=== PATIENT | female | born 1935 | race Two or more races ===

== ENCOUNTER 2021-03-19 23:55 | Inpatient (IN) | payer MEDICARE, OTHER ==
[~2021-03-19] VITALS: Ht 157.5 cm; Wt 70.8 kg
--- NOTE | 2021-03-20 00:17 | NUR ---
PT WAS BIBRA FROM HOME FOR EVALUATION OF POSTERIOR HEAD LACERATION S/P TRIP AND FALL NEXT TO HER SOFA. - KO REPORTED. PT REPORTED CHRONIC MID BACK PAIN WHICH WAS AGGRAVATED BY FALL. TDAP NOT UPDATED. PT WAS ASSISTED TO BED 10, WAS PLACED ON A MONITOR . VSS. WILL CONT TO MONITOR,
--- NOTE | 2021-03-20 00:38 | NUR ---
BROUGHT TO CT
--- NOTE | 2021-03-20 01:10 | NUR ---
DR MAYFIELD AT BED SIDE W/ SUPERVISOR WATER SOFTENER SERVICE
[2021-03-20] MEDS ORDERED: HYDROMORPHONE 1 MG/1 ML DISP.SYRIN ONE (01:28)
[2021-03-20] MEDS ORDERED: ONDANSETRON 4 MG TAB.RAPDIS ONE (01:29)
[2021-03-20] MEDS ORDERED: LIDOCAINE 1%-EPI 1:100,000 20 ML VIAL ONE (01:30)
[2021-03-20] MEDS ORDERED: SODIUM BICARBONATE 5 ML VIAL ONE (01:30)
[2021-03-20] MEDS ORDERED: HYDROMORPHONE 1 MG/1 ML DISP.SYRIN IM ONE (01:30)
[2021-03-20] MEDS ORDERED: ONDANSETRON 4 MG TAB.RAPDIS SL ONE (01:30)
[2021-03-20] MEDS ORDERED: LIDOCAINE 1%-EPI 1:100,000 20 ML VIAL TP ONE (02:00)
[2021-03-20] MEDS ORDERED: SODIUM BICARBONATE 5 ML VIAL MC ONE (02:00)
[2021-03-20] MEDS ORDERED: IV NS 0.9% 500 ML BAG IV ONE (02:00)
[2021-03-20 02:05] LABS: BASOPHILS % (AUTO) 0.4 % (0.0-2.0); EOSINOPHILS % (AUTO) 2.6 % (0.0-6.0); HEMATOCRIT 38 % (33-45); HEMOGLOBIN 12.8 g/dL (11.5-14.8); LYMPHOCYTES # (AUTO) 1.5 /CMM (0.8-4.8); MEAN CORPUSCULAR HGB CONC 34 g/dl (31.0-36.0); MEAN CORPUSCULAR VOLUME 98 fL (82-100); MONOCYTES # (AUTO) 0.5 /CMM (0.1-1.30); MONOCYTES % (AUTO) 5.5 % (2.0-12.0); NEUTROPHILS # (AUTO) 6.7 /CMM (1.8-8.9); NEUTROPHILS % (AUTO) 74.5 % (43.0-81.0); PLATELET COUNT (AUTO) 172 /CMM (150-450); RED BLOOD CELL COUNT(AUTO) 3.88 MIL/uL (4.0-5.2)
[2021-03-20 02:27] LABS: CALCIUM, SERUM 9.8 mg/dL (8.5-10.1); CREATININE 1.3 mg/dL (0.6-1.3); POTASSIUM 3.7 mmol/L (3.5-5.1)
[2021-03-20] MEDS ORDERED: ACETAMINOPHEN 325 MG TABLET PO PRN (02:30)
[2021-03-20] MEDS ORDERED: MAG HYDROX/AL HYDROX/SIMETH 30 ML UDC PO PRN (02:30)
[2021-03-20] MEDS ORDERED: ONDANSETRON HCL/PF 4 MG/2 ML VIAL IVP PRN (02:30)
[2021-03-20] MEDS ORDERED: MORPHINE SULFATE INJ 2 MG/ML DISP.SYRIN IV PRN (02:30)
[2021-03-20] MEDS ORDERED: Z GUARD REMEDY 2 OZ OINT TP PRN (02:30)
[2021-03-20] MEDS ORDERED: HYDROCODONE/APAP 5/325MG TABLET PO PRN (02:30)
[2021-03-20] MEDS ORDERED: TEMAZEPAM 15 MG CAPSULE PO PRN (02:30)
[2021-03-20] MEDS ORDERED: MAGNESIUM HYDROXIDE 30 ML UDC PO PRN (02:30)
[2021-03-20 02:33] LABS: ALBUMIN 3.9 g/dL (3.4-5.0); BILIRUBIN,DIRECT 0.1 mg/dL (0.0-0.2); BILIRUBIN,TOTAL 0.5 mg/dL (0.2-1.0); TOTAL PROTEIN, SERUM 7.7 g/dL (6.4-8.2)
[2021-03-20 04:35] VITALS: BP 154/76
--- NOTE | 2021-03-20 04:35 | NUR ---
REPORT GIVEN TO RN, PT TRANSFERED.
--- NOTE | 2021-03-20 04:35 | NUR ---
MS LIFE EDUCATOR NOTE RECEIVED PATIENT, ALERT/ORIENTED X 4, PRIMARY LANGUAGE CROATIAN BUT SPEAKS SOME TAMAZIGHT. PATIENT STABLE ON ROOM AIR, NO S/S OF DISTRESS OR SHORTNESS OF BREATH NOTED. PATIENT HAS LACERATION ON BACK OF THE HEAD WITH STITCHES, BRUISE ON BACK, AND OLD BUTTOCK WOUND, PHOTOS TAKEN AND CHARTED. LEFT AC #20G INTACT AND PATENT, SALINE LOCKED. PATIENT REPORTS BACK PAIN WHEN CHANGING POSITIONS. ORIENTED PATIENT TO THE ROOM AND HOW TO USE THE CALL LIGHT. WILL CONTINUE TO MONITOR. WILL CONTINUE PLAN OF CARE
[2021-03-20] MEDS: IV NS 0.9% 1,000 ML IV PRN ×2 (06:57→21:19)
--- NOTE | 2021-03-20 07:15 | NUR ---
MS RN CLOSING NOTES PATIENT SLEEPING IN BED, EASILY AWAKENED. NO COMPLAINTS OF PAIN AT THIS TIME. PATIENT STABLE ON ROOM AIR, NO S/S OF DISTRESS OR SHORTNESS OF BREATH NOTED. L AC #20G RUNNING NS @ 75 ML/HR. DVT PUMPS ON PATIENT. MEDICATIONS GIVEN ORDERED. PATIENT NEEDS MET THROUGHOUT SHIFT. SAFETY MEASURES IN PLACE, CALL LIGHT WITHIN REACH, BED LOCKED IN LOWEST POSITION AND BED ALARM ON. WILL ENDORSE TO DAY SHIFT NURSE FOR CONTINUITY OF CARE
--- NOTE | 2021-03-20 07:55 | NUR ---
MS RN OPENING NOTE PATIENT IS IN BED RESTING, PATIENT IS IN NO ACUTE DISTRESS. PATIENT IS ON ROOM AIR TOLERATING WELL. PATIENT IS UNABLE TO GET UP DUE TO A GROUND LEVEL FALL AT HOME. SAFETY PRECAUTIONS ARE ON. BED IS LOCKED IN THE LOWEST POSITION, WITH SIDE RAILS UP, CALL LIGHT WITHIN REACH, WILL CONTINUE TO MONITOR CLOSELY THROUGHOUT THE SHIFT.
[2021-03-20 08:51] VITALS: BP 152/73
[2021-03-20] MEDS: PANTOPRAZOLE 40 MG TABLET.DR PO SCH (09:34)
[2021-03-20] MEDS ORDERED: TELM80TA9 PO (11:17)
[2021-03-20] MEDS ORDERED: ICOS1CAP PO (11:17)
[2021-03-20] MEDS ORDERED: METO-357 PO (11:17)
[2021-03-20] MEDS ORDERED: FLUT1DIS3 INH (11:17)
[2021-03-20] MEDS ORDERED: SERT-438 PO (11:17)
[2021-03-20] MEDS ORDERED: CLON0.5T4 PO (11:17)
[2021-03-20] MEDS ORDERED: LIPA1CAP15 PO (11:17)
[2021-03-20] MEDS ORDERED: DICL100G34 TP (11:17)
[2021-03-20] MEDS ORDERED: FENO48TA6 PO (11:17)
[2021-03-20] MEDS ORDERED: TRAM50TA2 PO (11:17)
[2021-03-20] MEDS ORDERED: EMPA1TAB21 PO (11:17)
[2021-03-20] MEDS ORDERED: CARV25TA2 PO (11:17)
[2021-03-20] MEDS ORDERED: INSU100I4 SQ (11:17)
[2021-03-20] MEDS ORDERED: QUET25TA PO (11:17)
[2021-03-20] MEDS ORDERED: CLOP75TA15 PO (11:17)
[2021-03-20] MEDS ORDERED: CHOL200010 PO (11:17)
[2021-03-20] MEDS ORDERED: LEVO100T PO (11:17)
[2021-03-20] MEDS ORDERED: DICLOFENAC TOPICAL 100 GM GEL..GM. TP PRN (12:30)
[2021-03-20] MEDS ORDERED: clonazePAM 0.5 MG TABLET PO PRN (12:30)
[2021-03-20] MEDS: CARVEDILOL 12.5 MG TABLET PO SCH ×2 (12:30→17:25)
[2021-03-20] MEDS ORDERED: AMYLASE/LIPASE/PROTEASE 1 CAP CAPSULE.DR PO SCH (13:00)
[2021-03-20] MEDS: LIPASE/PROTEASE/AMYLASE 1 EACH CAPSULE.DR PO SCH ×2 (13:03→17:25)
--- NOTE | 2021-03-20 14:40 | NUR ---
MS RN NOTE DR. HAROON HOLLOWAY ORDERED ORTHOPEDIC LORCET BRACE FOR LUMBER SPINE. CALLED THREE SUPPLIES COMPANIES, THEY ARE ALL CLOSED DUE TO HOLIDAY. SUPPLIES DO NOT HAVE IT. WILL NOTIFY
--- NOTE | 2021-03-20 16:08 | NUR ---
MS RN NOTE FAXED OVER ORDER FOR LUMBAR ORTHOPEDIC CORSET TO [facility], NOTIFIED US IT WILL BE AVAILABLE TOMORROW. IS AWARE.
[2021-03-20 16:16] VITALS: BP 130/65
[2021-03-20] MEDS ORDERED: FLUTICASONE/SALMETEROL 1 DISK IH SCH (17:00)
--- NOTE | 2021-03-20 18:52 | NUR ---
MS RN CLOSING NOTE PATIENT IS IN BED RESTING, PATIENT IS IN NO ACUTE DISTRESS. PATIENT IS ON ROOM AIR TOLERATING WELL. PATIENT IS UNABLE TO GET UP DUE TO A GROUND LEVEL FALL AT HOME. SAFETY PRECAUTIONS ARE ON. BED IS LOCKED IN THE LOWEST POSITION, WITH SIDE RAILS UP, CALL LIGHT WITHIN REACH, ENDORSE PATIENT TO IN HOME BABY SITTER NURSE FOR JL.
--- NOTE | 2021-03-20 19:40 | NUR ---
MSRN FULLY AWAKE, BRUNEIAN SPEAKING WITH LIMITED SAMOAN. ABLE TO UNDERSTAND BASIC SAMOAN. VERBALIZES STOMACH PAIN, STATED WANTED TO USE BSC. REMINDED CBR SEC TO BACK PROBLEM. CORSET BRACE TO BE DELIVERED TOMORROW INSTEAD. FRACTURED HOOD PROVIDED. TO CONTINUE.
[2021-03-20 20:00] VITALS: BP 138/80
--- NOTE | 2021-03-20 20:00 | NUR ---
MSRN NOT ABLE TO DEFECATE, INCREASING ABDOMINAL PAIN. INSISTED TO USE COMMODE, ASSISTED MOD TO MAX ASSIST 2 PERSON GOING TO BSC. ATTENDING UROLOGIST STAYED WITH PATIENT, HFR. ABLE TO DEFECATE LARGE STOOLS. RELIEF FROM STOMACH ACHE PATIENT VERBALIZES. HS CARE STARTED. ASSISTED BACK TO BED REPOSITIONED FOR COMFORT. IVF CONTINUED. FELT BETTER THIS TIME.
[2021-03-21 05:57] LABS: BASOPHILS % (AUTO) 0.4 % (0.0-2.0); EOSINOPHILS % (AUTO) 2.9 % (0.0-6.0); HEMATOCRIT 32 % (33-45); HEMOGLOBIN 10.7 g/dL (11.5-14.8); LYMPHOCYTES # (AUTO) 1.2 /CMM (0.8-4.8); LYMPHOCYTES % (AUTO) 16.5 % (20.0-44.0); MEAN CORPUSCULAR HGB CONC 34 g/dl (31.0-36.0); MEAN CORPUSCULAR VOLUME 99 fL (82-100); MONOCYTES # (AUTO) 0.5 /CMM (0.1-1.30); MONOCYTES % (AUTO) 7.5 % (2.0-12.0); NEUTROPHILS # (AUTO) 5.3 /CMM (1.8-8.9); NEUTROPHILS % (AUTO) 72.7 % (43.0-81.0); PLATELET COUNT (AUTO) 146 /CMM (150-450); RED BLOOD CELL COUNT(AUTO) 3.22 MIL/uL (4.0-5.2); WHITE BLOOD COUNT (AUTO) 7.3 K/uL (4.3-11.0)
[2021-03-21 06:02] LABS: CALCIUM, SERUM 8.6 mg/dL (8.5-10.1); CREATININE 1.1 mg/dL (0.6-1.3); MAGNESIUM 1.3 mg/dL (1.8-2.4); PHOSPHORUS 3.5 mg/dL (2.5-4.9); POTASSIUM 3.9 mmol/L (3.5-5.1)
--- NOTE | 2021-03-21 06:57 | NUR ---
MSRN BACK PAIN WHEN REPOSITIONING. ADVISED LOG ROLLING, STILL PREFERS USING BSC, EXPLAINED RISK, UNABLE TO VOID IN BEDPAN. MODERATE ASSIST ON TRANSFERS, AWAITING FOR CORCET BRACE.
--- NOTE | 2021-03-21 07:30 | NUR ---
MS RN OPENING NOTE PATIENT IS IN BED AWAKE, A&0 X 3-4, NO ACUTE DISTRESS NOTED. PATIENT IS ON ROOM AIR TOLERATING WELL. PATIENT HAS COMPLAINTS OF INTERMITTENT BACK PAIN, PAIN MEDICATION OFFERED, PATIENT REFUSED. WITH IV OF NS AT 75 CC/HR INFUSING WELL ON LEFT AC G#20, PATENT AND INFUSING WELL. NO INFILTRATION NOTED. SAFETY PRECAUTIONS OBSERVED AND MAINTAINED: BED IS LOCKED IN THE LOWEST POSITION, WITH SIDE RAILS UP, CALL LIGHT WITHIN REACH, WILL CONTINUE TO MONITOR CURRENT STATUS.
[2021-03-21 08:00] VITALS: BP 139/66
[2021-03-21] MEDS: Fenofibrate 48 MG TABLET PO SCH (08:43)
[2021-03-21] MEDS: LIPASE/PROTEASE/AMYLASE 1 EACH CAPSULE.DR PO SCH ×3 (08:43→17:13)
[2021-03-21] MEDS: PANTOPRAZOLE 40 MG TABLET.DR PO SCH (08:44)
[2021-03-21] MEDS: CLOPIDOGREL BISULFATE 75 MG TABLET PO SCH (08:44)
[2021-03-21] MEDS: LEVOTHYROXINE SODIUM 100 MCG TABLET PO SCH (08:44)
[2021-03-21] MEDS: CARVEDILOL 12.5 MG TABLET PO SCH ×2 (08:45→16:48)
[2021-03-21] MEDS: QUETIAPINE FUMARATE 25 MG TABLET PO SCH (08:45)
[2021-03-21] MEDS: FLUTICASONE/VILANTEROL 1 EACH BLST.W.DEV IH SCH (08:54)
[2021-03-21] MEDS: SERTRALINE HCL 50 MG TABLET PO SCH (08:56)
--- NOTE | 2021-03-21 09:00 | NUR ---
RN NOTES PATIENT IV NOTED WITH REDNESS. CHECKED FOR PATENCY, NO BACKFLOW NOTED. REMOVED IV ON L AC AND INSERTED A NEW LINE ON PATIENT'S R FOREARM USING IV CATHETER G#20. IV SITE PATENT AND INFUSING WELL.
[2021-03-21] MEDS: Magnesium 1GM/D5W 100ML PREMIX 100 ML IV SCH ×4 (09:40→13:19)
[2021-03-21 10:56] LABS: CREATININE, URINE 71.7 MG/DL (30.0-125.0); URINE TOTAL PROTEIN 17.7 mg/dL (0-11.9)
--- NOTE | 2021-03-21 10:56 | NUR ---
WOUND CARE CONSULT: PT PRESENTS WITH SCARRING TO LOWER BUTTOCKS WITH SCRATCH FINNEY, MIDBACK SKIN DISCOLORATION AND CLOSED LACERATION TO SCALP, ALL PRESENT ON ADMISSION. RECOMMENDATIONS MADE FOR SKIN PROTECTION. DISCUSSED WITH NURSING STAFF. MD IN AGREEMENT WITH PLAN OF CARE.
[2021-03-21 11:23] LABS: BILIRUBIN,URINE NEGATIVE (NEGATIVE); COLOR,URINE YELLOW (YELLOW); LEUKOCYTE ESTERASE ,URINE NEGATIVE (NEGATIVE); NITRITE, URINE NEGATIVE (NEGATIVE); PROTEIN,URINE NEGATIVE (NEGATIVE); UGLUCOSE NEGATIVE (NEGATIVE); UROBILINOGEN,URINE 0.2 EU/dL (0.2)
[2021-03-21 12:47] LABS: EOSINOPHIL,URINE None Seen
[2021-03-21 16:01] VITALS: BP 123/44
[2021-03-21] MEDS: IV NS 0.9% 1,000 ML IV PRN (16:37)
--- NOTE | 2021-03-21 18:43 | NUR ---
MS RN CLOSING NOTES PATIENT IN BED, AWAKE, A&O X4. NOT IN ANY FORM OF ACUTE DISTRESS NOTED. WITH IVF OF NS @75CC/HR INFUSING WELL ON PATIENT'S RIGHT FOREARM. NO REDNESS, NO S/SX OF INFILTRATION NOTED. WITH COMPLAINTS OF INTERMITTENT BACK PAIN, REFUSED PAIN MEDICATION. SAFETY PRECAUTIONS OBSERVED AND MAINTAINED DURING THE SHIFT: BED ON LOWEST LOCKED POSITION. SIDE RAILS UP X 2. KEPT CALL LIGHT WITHIN EASY REACH. DUE MEDS GIVEN ORDERED. ENDORSED TO OPENING MACHINE CLEANER NURSE FOR CONTINUITY OF CARE.
--- NOTE | 2021-03-21 19:45 | NUR ---
MSRN FULLY AWAKE, NO NEEDS MADE. HFR. SAFETY PRECAUTIONS EMPHASIZED APPEARS TO UNDERSTAND, BED ALARM ON. CLOSELY WATCHED
[2021-03-21 20:00] VITALS: BP 129/65
--- NOTE | 2021-03-21 20:45 | NUR ---
MSRN ASSISTED TO BSC, 2 PERSON ASSIST. HAD BM. ADVISED NEED TO WEAR CORSET BRACE MATHEW WHEN GETTING OOB, REFUSED.
--- NOTE | 2021-03-21 21:20 | NUR ---
MSRN PATIENT IN SEVERE PAIN ESPECIALLY RIB PAIN AND BACK. OFFERED PAIN MED AGREED THIS TIME. MORPHINE IVP ADMINISTERED. POSITIONED FOR COMFORT. CLOSELY WATCHED.
--- NOTE | 2021-03-22 01:10 | NUR ---
DEVIN SLEPT WELL. PROVIDED QUIET ENVIRONMENT. CLOSELY WATCHED.
[2021-03-22 06:05] LABS: BASOPHILS % (AUTO) 0.4 % (0.0-2.0); EOSINOPHILS % (AUTO) 3.7 % (0.0-6.0); HEMATOCRIT 32 % (33-45); HEMOGLOBIN 10.7 g/dL (11.5-14.8); LYMPHOCYTES # (AUTO) 1.6 /CMM (0.8-4.8); LYMPHOCYTES % (AUTO) 26.8 % (20.0-44.0); MEAN CORPUSCULAR HGB CONC 34 g/dl (31.0-36.0); MEAN CORPUSCULAR VOLUME 98 fL (82-100); MONOCYTES # (AUTO) 0.5 /CMM (0.1-1.30); MONOCYTES % (AUTO) 8.5 % (2.0-12.0); NEUTROPHILS # (AUTO) 3.7 /CMM (1.8-8.9); NEUTROPHILS % (AUTO) 60.6 % (43.0-81.0); PLATELET COUNT (AUTO) 151 /CMM (150-450); WHITE BLOOD COUNT (AUTO) 6.1 K/uL (4.3-11.0)
[2021-03-22 06:24] LABS: ALBUMIN 2.9 g/dL (3.4-5.0); BILIRUBIN,TOTAL 0.3 mg/dL (0.2-1.0); CALCIUM, SERUM 8.6 mg/dL (8.5-10.1); MAGNESIUM 1.8 mg/dL (1.8-2.4); PHOSPHORUS 3.3 mg/dL (2.5-4.9); POTASSIUM 3.8 mmol/L (3.5-5.1); TOTAL PROTEIN, SERUM 6.1 g/dL (6.4-8.2)
--- NOTE | 2021-03-22 06:40 | NUR ---
MSRN FULLY AWAKE, PAIN TOLERABLE, IVF CONTINUED.
--- NOTE | 2021-03-22 07:20 | NUR ---
ms rn received on bed, awake,alert,oriented x4,not in any form of distress, respirations even and unlabored,no sob noted, lungs are clear,abdomen soft,positive bowel sounds,denies pain at this time, will monitor patient's condition.
[2021-03-22 08:00] VITALS: BP 142/69
[2021-03-22] MEDS: PANTOPRAZOLE 40 MG TABLET.DR PO SCH (08:25)
[2021-03-22] MEDS: CLOPIDOGREL BISULFATE 75 MG TABLET PO SCH (08:25)
[2021-03-22] MEDS: SERTRALINE HCL 50 MG TABLET PO SCH (08:26)
[2021-03-22] MEDS: QUETIAPINE FUMARATE 25 MG TABLET PO SCH (08:26)
[2021-03-22] MEDS: LEVOTHYROXINE SODIUM 100 MCG TABLET PO SCH (08:26)
[2021-03-22] MEDS: LIPASE/PROTEASE/AMYLASE 1 EACH CAPSULE.DR PO SCH ×3 (08:26→17:54)
[2021-03-22] MEDS: CARVEDILOL 12.5 MG TABLET PO SCH ×2 (08:27→17:55)
[2021-03-22] MEDS: Fenofibrate 48 MG TABLET PO SCH (08:59)
[2021-03-22] MEDS: FLUTICASONE/VILANTEROL 1 EACH BLST.W.DEV IH SCH (08:59)
--- NOTE | 2021-03-22 09:05 | NUR ---
ms martinez breakfast served,due meds given,tolerated well.
[2021-03-22 16:00] VITALS: BP 140/60
--- NOTE | 2021-03-22 19:30 | NUR ---
RN OPENING NOTE PATIENT IN BED EYES CLOSED, PATIENT IS EASILY AROUSED. PATIENT IS AUSTRALIAN SPEAKING BUT CAN UNDERSTAND WELSH. A/O X 4. PATIENT'S OBDULIO ON THE POSTERIOR SCALP INTACT, CLEAN, AND DRY. PATIENT'S IV ACCESS PATENT AND INTACT. SAFETY MEASURES IN PLACE: BED IN LOCKED AND LOWEST POSITION, CALL LIGHT WITHIN REACH, SIDE RAILS UP. ENCOURAGED PATIENT TO CALL WHEN IN NEED. WILL MONITOR PATIENT CLOSELY.
[2021-03-22 20:00] VITALS: BP 159/75
--- NOTE | 2021-03-22 21:08 | NUR ---
NOTIFIED SOLOMON CATES REGARDING PATIENT NOT BEING DISCHARGED TODAY D/T CASE MANAGEMENT NOT ABLE TO ARRANGE ARU TRANSFER. CONFIRMED. WILL BE D/C TOMORROW.
[2021-03-23 06:06] LABS: PTH, INTACT 17 pg/mL (15-65)
--- NOTE | 2021-03-23 06:56 | NUR ---
RN CLOSING NOTE PATIENT IN BED EYES CLOSED, PATIENT IS EASILY AROUSED. ASSESSED PAIN AND OFFERED PAIN MEDICATION THROUGHOUT THE SHIFT, PATIENT REFUSING PAIN MEDICINE. PATIENT'S OBDULIO ON OCCIPITAL LACERATION STILL INTACT, CLEAN, AND DRY. PATIENT'S IV ACCESS REMAINED PATENT AND INTACT. SAFETY MEASURES MAINTAINED: BED IN LOCKED AND LOWEST POSITION, CALL LIGHT WITHIN REACH, SIDE RAILS UP, AND BED ALARM ON. ALL NEEDS MET AND ATTENDED, ALL ORDERS CARRIED OUT. WILL ENDORSE TO DAY SHIFT NURSE FOR JL
--- NOTE | 2021-03-23 07:44 | NUR ---
RN OPENING NOTE PATIENT IN BED EYES CLOSED, PATIENT IS EASILY AROUSED. PATIENT IS NORTHERN IRISH SPEAKING BUT CAN UNDERSTAND BULGARIAN. A/O X 4. PATIENT IS BREATHING EVENLY AND NONLABORED STABLE ON ROOM AIR. PATIENT'S OBDULIO ON THE POSTERIOR SCALP INTACT, CLEAN, AND DRY. PATIENT'S IV ACCESS ON RIGHT FA #20 GAUGE PATENT AND INTACT. SAFETY MEASURES IN PLACE: BED IN LOCKED AND LOWEST POSITION, CALL LIGHT WITHIN REACH, SIDE RAILS UP. ENCOURAGED PATIENT TO CALL WHEN IN NEED. WILL CONTINUE TO MONITOR PATIENT
[2021-03-23 08:00] VITALS: BP 163/75
[2021-03-23 08:07] LABS: *SPE A/G RATIO 0.9 (0.7-1.7); *SPE ALBUMIN 2.7 g/dL (2.9-4.4); *SPE ALPHA-1-GLOBULIN 0.3 g/dL (0.0-0.4); *SPE ALPHA-2-GLOBULIN 0.9 g/dL (0.4-1.0); *SPE BETA GLOBULIN 0.9 g/dL (0.7-1.3); *SPE M-SPIKE Not Observed g/dL (Not Observed)
[2021-03-23] MEDS: PANTOPRAZOLE 40 MG TABLET.DR PO SCH (08:13)
[2021-03-23] MEDS: LEVOTHYROXINE SODIUM 100 MCG TABLET PO SCH (08:13)
[2021-03-23] MEDS: LIPASE/PROTEASE/AMYLASE 1 EACH CAPSULE.DR PO SCH (08:19)
[2021-03-23 08:20] VITALS: BP 137/90
[2021-03-23] MEDS: QUETIAPINE FUMARATE 25 MG TABLET PO SCH (08:20)
[2021-03-23] MEDS: SERTRALINE HCL 50 MG TABLET PO SCH (08:20)
[2021-03-23] MEDS: CLOPIDOGREL BISULFATE 75 MG TABLET PO SCH (08:20)
[2021-03-23] MEDS: CARVEDILOL 12.5 MG TABLET PO SCH (08:20)
[2021-03-23] MEDS: Fenofibrate 48 MG TABLET PO SCH (08:22)
[2021-03-23] MEDS: FLUTICASONE/VILANTEROL 1 EACH BLST.W.DEV IH SCH (08:23)
--- NOTE | 2021-03-23 11:46 | NUR ---
DESKTOP SUPPORT MANAGER NOTE RECEIVED ORDER FOR DISCHARGE. PATIENT IS NIGERIAN SPEAKING BUT CAN UNDERSTAND MACEDONIAN. A/O X 4. PATIENT IS BREATHING EVENLY AND NONLABORED STABLE ON ROOM AIR. PATIENT'S OBDULIO ON THE POSTERIOR SCALP INTACT, CLEAN, AND DRY. PATIENT'S IV ACCESS AND ID WERE REMOVED. DISCHARGE INSTRUCTIONS WERE GIVEN BOTH VERBALLY AND WRITTEN. REPORT GIVEN TO [facility] TO RN PLATE MOLDER. PATIENT LEFT IN STABLE CONDITION VIA AMBULANCE 3 DENTAL CLAIMS PROCESSOR PRESENT.
== END 2021-03-23 11:46 | DRG 542 ==
LOC: ER 23:58 → MED 03-20 04:16
PROVIDERS: ADMIT Nurse Practitioner Acute Care; ATTEND Hospitalist
DX: M48.55XA Collapsed vertebra, not elsewhere classified, thoracolumbar region, initial encounter for fracture (principal); N17.0 Acute kidney failure with tubular necrosis; J84.9 Interstitial pulmonary disease, unspecified; W18.30XA Fall on same level, unspecified, initial encounter; S01.01XA Laceration without foreign body of scalp, initial encounter; I10 Essential (primary) hypertension; Z20.822 Contact with and (suspected) exposure to COVID-19; Y92.009 Unspecified place in unspecified non-institutional (private) residence as the place of occurrence of the external cause; E11.9 Type 2 diabetes mellitus without complications; E03.9 Hypothyroidism, unspecified; E66.9 Obesity, unspecified; Z68.28 Body mass index [BMI] 28.0-28.9, adult; I70.0 Atherosclerosis of aorta; E83.42 Hypomagnesemia; M47.815 Spondylosis without myelopathy or radiculopathy, thoracolumbar region; M48.02 Spinal stenosis, cervical region; Z98.890 Other specified postprocedural states; R29.6 Repeated falls; M85.88 Other specified disorders of bone density and structure, other site; R26.9 Unspecified abnormalities of gait and mobility; Z90.5 Acquired absence of kidney; N13.9 Obstructive and reflux uropathy, unspecified; Z88.0 Allergy status to penicillin; Z79.4 Long term (current) use of insulin; Z79.02 Long term (current) use of antithrombotics/antiplatelets; Z79.899 Other long term (current) drug therapy
CPT/HCPCS: 36415; 70450-TC; 71045-TC; 72125-TC; 72128-TC; 72131-TC; 80048-TC; 80053-TC; 80061-TC; 80076-TC; 82550-TC; 82570-TC; 83735-TC; 83970; 84100-TC; 84155; 84155-TC; 84165; 84300-TC; 85025-TC; 85730-TC; 87081-TC; 92521; 92526; 97112-TC; 97530-TC; C9803; G0378; J1170; J2270; J3475; J3490; J7030; J7040; Q0162

== ENCOUNTER 2021-04-14 06:31 | Inpatient (IN) | payer MEDICARE, OTHER ==
[~2021-04-14] VITALS: Ht 157.5 cm; Wt 67.6 kg
[~2021-04-14 06:31] MED LIST: CARV25TA2 PO; CHOL200010 PO; CLON0.5T4 PO; CLOP75TA15 PO; DICL100G34 TP; EMPA1TAB21 PO; FENO48TA6 PO; FLUT1DIS3 INH; ICOS1CAP PO; INSU100I4 SQ; LEVO100T PO; LIPA1CAP15 PO; METO-357 PO; QUET25TA PO; SERT-438 PO; TELM80TA9 PO; TRAM50TA2 PO
--- NOTE | 2021-04-14 06:35 | NUR ---
pt bibra c/o left hip pain s/p trip and fall in bathroom. Pt aaox4 breathing evenly and unlabored. No shortening or rotation noted. pt attached to monitor and pox. MD at bedside. Pt given blanket and call light within reach
--- NOTE | 2021-04-14 06:40 | NUR ---
lab at bedside
--- NOTE | 2021-04-14 07:05 | NUR ---
gave report to juan Alexis for gagan
[2021-04-14 07:12] LABS: BASOPHILS # (AUTO) 0.1 K/uL (0.0-0.2); BASOPHILS % (AUTO) 0.6 % (0.0-2.0); EOSINOPHILS % (AUTO) 4.6 % (0.0-6.0); HEMATOCRIT 36 % (33-45); HEMOGLOBIN 12.1 g/dL (11.5-14.8); LYMPHOCYTES # (AUTO) 1.8 K/uL (0.8-4.8); LYMPHOCYTES % (AUTO) 19.5 % (20.0-44.0); MEAN CORPUSCULAR HGB CONC 33 g/dl (31.0-36.0); MEAN CORPUSCULAR VOLUME 97 fL (82-100); MONOCYTES # (AUTO) 0.6 K/uL (0.1-1.30); NEUTROPHILS # (AUTO) 6.4 K/uL (1.8-8.9); NEUTROPHILS % (AUTO) 69.3 % (43.0-81.0); PLATELET COUNT (AUTO) 179 K/uL (150-450); RED BLOOD CELL COUNT(AUTO) 3.72 MIL/uL (4.0-5.2); WHITE BLOOD COUNT (AUTO) 9.2 K/uL (4.3-11.0)
[2021-04-14 07:25] LABS: CARBON DIOXIDE 19 mmol/L (21-32); CHLORIDE 110 mmol/L (98-107); CREATININE 1.4 mg/dL (0.6-1.3); GLUCOSE 121 mg/dL (74-106); POTASSIUM 4.1 mmol/L (3.5-5.1); SODIUM SERUM 141 mmol/L (136-145); UREA NITROGEN, BLOOD 28 mg/dL (7-18)
[2021-04-14] MEDS ORDERED: ACETAMINOPHEN 325 MG TABLET PO ONE (07:30)
[2021-04-14] MEDS ORDERED: ACETAMINOPHEN 325 MG TABLET ONE (07:32)
--- NOTE | 2021-04-14 08:16 | NUR ---
walked patient and unable to ambulate, informed MD and notified.
--- NOTE | 2021-04-14 08:21 | NUR ---
MOVE SHEET SUBMITTED AND CALLED FOR BED.
--- NOTE | 2021-04-14 08:26 | NUR ---
covid 19 swab collected and sent to lab.
--- NOTE | 2021-04-14 08:39 | NUR ---
GOT BED [id number] DAVIAN MCKINLEY
--- NOTE | 2021-04-14 08:44 | NUR ---
wheeled patient to ct via gurney accompanied by [employer] [place].
--- NOTE | 2021-04-14 08:45 | NUR ---
report given to Yovani MARCELO for gagan.
--- NOTE | 2021-04-14 09:48 | NUR ---
wheeled patient via gurney accompanied by RN and emt in no distress, RN assigned at bedside to assume care.
--- NOTE | 2021-04-14 10:00 | NUR ---
MS DECORATING MACHINE OPERATOR NOTE PATIENT ADMITTED FROM ER ACCOMPANIED BY NURSE ON A GURNEY. PATIENT TRANSFERRED TO BED AND COMFORT MEASURES PROVIDED. PATIENT IS ALERT AND ORIENTED X4 MOSTLY RUSSIANS SPEAKING. PATIENT COMPLAINED OF PAIN ON HIPS, LEFT MORE THAN RIGHT DURING TRANSFERS OR WHEN AMBULATING. PATIENT APPARENTLY HAD A FALL AND HAD SEVERAL FALLS FOR THE PAST 3 MONTHS. PATIENT WITH NO SIGNS OF DISTRESS AND IS ON ROOM AIR SATURATING AT 98%. 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 COMFORT MEASURES PROVIDED. NEEDS ATTENDED. CALL LIGHT AND BEDSIDE TABLE WITHIN REACH AT ALL TIMES. BED LOCKED AN AT LOWEST POSITION. WITH SIDERAILS UP FOR SAFETY. WILL CONTINUE TO MONITOR PATIENT.
[2021-04-14] MEDS ORDERED: DICLOFENAC TOPICAL 100 GM GEL..GM. TP PRN (11:00)
[2021-04-14] MEDS ORDERED: clonazePAM 0.5 MG TABLET PO PRN (11:00)
[2021-04-14] MEDS ORDERED: DEXTROSE 50%-WATER 50 ML DISP.SYRIN IV PRN (11:00)
[2021-04-14] MEDS ORDERED: TRAMADOL HCL 50 MG TABLET PO PRN (11:00)
[2021-04-14] MEDS ORDERED: MAGNESIUM HYDROXIDE 30 ML UDC PO PRN (11:00)
[2021-04-14] MEDS ORDERED: HOME MED MISCELLANEOUS XX SCH (11:00)
[2021-04-14] MEDS ORDERED: ACETAMINOPHEN 325 MG TABLET PO PRN (11:00)
[2021-04-14] MEDS ORDERED: HYDROCODONE/APAP 5/325MG TABLET PO PRN (11:00)
[2021-04-14] MEDS ORDERED: MAG HYDROX/AL HYDROX/SIMETH 30 ML UDC PO PRN (11:00)
[2021-04-14] MEDS ORDERED: Z GUARD REMEDY 2 OZ OINT TP PRN (11:00)
[2021-04-14] MEDS ORDERED: ONDANSETRON HCL/PF 4 MG/2 ML VIAL IVP PRN (11:00)
[2021-04-14] MEDS ORDERED: HYDROCODONE/APAP 10/325MG TABLET PO PRN (11:00)
[2021-04-14] MEDS: BLOOD SUGAR DIAGNOSTIC 1 EACH STRIP IN SCH ×3 (12:00→22:21)
[2021-04-14] MEDS: LIPASE/PROTEASE/AMYLASE 1 EACH CAPSULE.DR PO SCH ×2 (12:26→17:27)
[2021-04-14] MEDS: CLOPIDOGREL BISULFATE 75 MG TABLET PO SCH (12:26)
[2021-04-14] MEDS: ENOXAPARIN SODIUM 30 MG/0.3 ML DISP.SYRIN SQ SCH (12:34)
[2021-04-14 16:00] VITALS: BP 142/69
[2021-04-14] MEDS ORDERED: FLUTICASONE/SALMETEROL 1 DISK IH SCH (17:00)
--- NOTE | 2021-04-14 18:55 | NUR ---
MS RN CLOSING NOTE PATIENT IS ALERT AND ORIENTED X4 MOSTLY RUSSIANS SPEAKING. PATIENT WITH NO SIGNS OF DISTRESS AND IS ON ROOM AIR SATURATING AT 98%. PATIENT DID NOT COMPLAIN OF PAIN OR DISCOMFORT DURING THE SHIFT. COMFORT MEASURES PROVIDED. NEEDS ATTENDED. CALL LIGHT AND BEDSIDE TABLE WITHIN REACH AT ALL TIMES. BED LOCKED AN AT LOWEST POSITION. WITH SIDERAILS UP FOR SAFETY. WILL ENDORSE TO NEXT SHIFT FOR CONTINUITY OF CARE.
[2021-04-14 20:00] VITALS: BP 157/70
--- NOTE | 2021-04-14 20:00 | NUR ---
MS RN OPENING NOTES Patient is A&Ox4. Patient c/o mild and tolerable L hip pain only at this time. No other issues. Relayed to patient that when she needs to use the restroom we will collect the urine for labs and to call as per usual for assistance with bedpan. No distress. Will monitor.
[2021-04-14 21:00] LABS: BILIRUBIN,URINE NEGATIVE (NEGATIVE); COLOR,URINE YELLOW (YELLOW); LEUKOCYTE ESTERASE ,URINE NEGATIVE (NEGATIVE); NITRITE, URINE NEGATIVE (NEGATIVE); PROTEIN,URINE NEGATIVE (NEGATIVE); UGLUCOSE NEGATIVE (NEGATIVE); UROBILINOGEN,URINE 0.2 EU/dL (0.2)
[2021-04-15] MEDS: IV NS 0.9% 1,000 ML IV PRN ×2 (03:17→18:33)
--- NOTE | 2021-04-15 06:36 | NUR ---
MS RN CLOSING NOTES Patient is A&Ox4. VSS. Denies pain. Maintains bedrest. Using bedpan for elimination. No hypo or hypoglycemic reactions noted. Able to verbalize needs. All needs met by staff. Tolerating IVF well at this time. #24G to R hand intact and patent.
[2021-04-15 07:01] LABS: BASOPHILS # (AUTO) 0.1 K/uL (0.0-0.2); BASOPHILS % (AUTO) 0.7 % (0.0-2.0); EOSINOPHILS % (AUTO) 4.4 % (0.0-6.0); HEMATOCRIT 37 % (33-45); HEMOGLOBIN 12.5 g/dL (11.5-14.8); LYMPHOCYTES # (AUTO) 1.6 K/uL (0.8-4.8); LYMPHOCYTES % (AUTO) 18.6 % (20.0-44.0); MEAN CORPUSCULAR HGB CONC 34 g/dl (31.0-36.0); MEAN CORPUSCULAR VOLUME 97 fL (82-100); MONOCYTES # (AUTO) 0.6 K/uL (0.1-1.30); MONOCYTES % (AUTO) 6.5 % (2.0-12.0); NEUTROPHILS # (AUTO) 6.1 K/uL (1.8-8.9); NEUTROPHILS % (AUTO) 69.8 % (43.0-81.0); PLATELET COUNT (AUTO) 183 K/uL (150-450); RED BLOOD CELL COUNT(AUTO) 3.82 MIL/uL (4.0-5.2); WHITE BLOOD COUNT (AUTO) 8.7 K/uL (4.3-11.0)
[2021-04-15] MEDS: BLOOD SUGAR DIAGNOSTIC 1 EACH STRIP IN SCH ×4 (07:20→21:46)
[2021-04-15 07:21] LABS: CALCIUM, SERUM 9.6 mg/dL (8.5-10.1); MAGNESIUM 1.5 mg/dL (1.8-2.4); PHOSPHORUS 3.1 mg/dL (2.5-4.9); POTASSIUM 3.8 mmol/L (3.5-5.1)
--- NOTE | 2021-04-15 07:40 | NUR ---
MS RN OPENING NOTES RECEIVED PATIENT IN BED AWAKE. ALERT AND ORIENTED X 4. NO SIGNS OR SYMPTOMS OF DISTRESS NOTED. COMPLAINT OF MILD L HIP PAIN, REFUSES PAIN MEDICATION AT THIS TIME. BREATHING IS REGULAR AND UNLABORED. CALL LIGHT IS WITHIN REACH. SAFETY MEASURES IN PLACE WITH BED LOCKED AT LOWEST POSITION, SIDE RAILS UP X2. WILL CONTINUE TO MONITOR THROUGHOUT SHIFT.
[2021-04-15] MEDS: CHOLECALCIFEROL 1,000 UNIT TABLET (VIT D3) PO SCH (08:23)
[2021-04-15] MEDS: LEVOTHYROXINE SODIUM 100 MCG TABLET PO SCH (08:23)
[2021-04-15] MEDS: LIPASE/PROTEASE/AMYLASE 1 EACH CAPSULE.DR PO SCH ×3 (08:24→18:11)
[2021-04-15] MEDS: PANTOPRAZOLE 40 MG TABLET.DR PO SCH (08:26)
[2021-04-15] MEDS: QUETIAPINE FUMARATE 25 MG TABLET PO SCH (08:26)
[2021-04-15] MEDS: CLOPIDOGREL BISULFATE 75 MG TABLET PO SCH (08:26)
[2021-04-15] MEDS: SERTRALINE HCL 50 MG TABLET PO SCH (08:26)
[2021-04-15] MEDS: METOPROLOL SUCCINATE 50 MG TAB.SR.24H PO SCH (08:40)
[2021-04-15] MEDS: ENOXAPARIN SODIUM 30 MG/0.3 ML DISP.SYRIN SQ SCH (08:41)
[2021-04-15] MEDS ORDERED: Magnesium 1GM/D5W 100ML PREMIX PIGGYBACK IV ONE (09:00)
[2021-04-15] MEDS: Fenofibrate 48 MG TABLET PO SCH (09:22)
[2021-04-15] MEDS: FLUTICASONE/VILANTEROL 1 EACH BLST.W.DEV IH SCH (09:42)
[2021-04-15] MEDS: VALSARTAN 80 MG TABLET PO SCH (10:00)
[2021-04-15] MEDS: INSULIN REGULAR, HUMAN 100 UNIT/ML 3 ML VIAL SQ PRN (12:00)
--- NOTE | 2021-04-15 13:47 | NUR ---
MS RN NOTES PATIENT PULLED OUT IV ACCESS ON RHAND#24. REINSERTED IV ACCESS ON LFA#22, PATENT, INTACT AND FLUSHING WELL.
--- NOTE | 2021-04-15 19:29 | NUR ---
MS RN CLOSING NOTES PATIENT IN BED AWAKE. ALERT AND ORIENTED X 4. NO SIGNS OR SYMPTOMS OF DISTRESS NOTED. BREATHING IS REGULAR AND UNLABORED. ON ROOM AIR, TOLERATING WELL.IV ACCESS LFA#22 INTACT AND FLUSHING WE. NS 0.9% RUNNING AT 75MLS/HR. CALL LIGHT IS WITHIN REACH. SAFETY MEASURES IN PLACE WITH BED LOCKED AT LOWEST POSITION, SIDE RAILS UP X2. WILL ENDORSE CONTINUITY OF CARE TO NEXT NURSE.
--- NOTE | 2021-04-15 19:33 | NUR ---
MS RN OPENING NOTES: RECEIVED PATIENT AWAKE IN BED, BED IN LOW POSITION, CALL LIGHTS WITHIN REACH, NO COMPLAIN OF PAIN AND DISCOMFORT AT THIS TIME, REMIND RESIDENT TO USE CALL LIGHTS WHEN NEEDED ASSISTANCE, WITH IV LINE R HAND #24 ON 0.9NSS @75ML/HR INFUSING WELL, PATIENT KEPT CLEAN AND DRY, WILL CONTINUE TO MONITOR.
[2021-04-15 20:00] VITALS: BP 159/75
--- NOTE | 2021-04-16 06:49 | NUR ---
RN CLOSING NOTES: PATIENT SLEEP IN BED COMFORTABLY,AROUSABLE TO STIMULUS, BED IN LOW POSITION, CALL LIGHTS WITHIN REACH, NO COMPLAIN PF PAIN AND DISCOMFORT AT THIS TIME, PATIENT IS A/O X 2-3 ON BED HOOD BUT INSIST ON GOING TO BATHROOM, NEEDS TO MONITOR FOR ASSISTANCE DUE TO FALL RISK, WITH LFA #22 IV LINE ON 09NSS@75ML PER HOUR INFUSING WELL, DUE MEDS GIVEN, ALL NEEDS MET,ENDORSE TO INCOMING SHIFT.
[2021-04-16] MEDS: BLOOD SUGAR DIAGNOSTIC 1 EACH STRIP IN SCH ×4 (07:16→22:20)
--- NOTE | 2021-04-16 07:56 | NUR ---
RN OPENING NOTE PT AWAKE IN BED. A/O X3 AND NAMIBIAN SPEAKING. UNDERSTANDS CANADIAN. NO COMPLAINT OF PAIN OR NAUSEA PRESENT. ON RA WITH NO SOB OR RESPIRATORY DISTRESS PRESENT. SELF AMBULATORY WITH STEADY GAIT. IV PRESENT ON L FA 22G AND FLUSHES WELL. LABS AND ORDERS REVIEWED. SAFETY MEASURES IN PLACE. SAFETY MEASURES IN PLACE. SIDE RAILS RAISED. BED LOWERED. CALL LIGHT WITHIN REACH. WILL CONTINUE TO MONITOR.
[2021-04-16 08:00] VITALS: BP 146/77
[2021-04-16 08:28] LABS: CALCIUM, SERUM 9.4 mg/dL (8.5-10.1); POTASSIUM 3.9 mmol/L (3.5-5.1)
[2021-04-16] MEDS: LEVOTHYROXINE SODIUM 100 MCG TABLET PO SCH (08:37)
[2021-04-16] MEDS: PANTOPRAZOLE 40 MG TABLET.DR PO SCH (08:37)
[2021-04-16] MEDS: LIPASE/PROTEASE/AMYLASE 1 EACH CAPSULE.DR PO SCH ×3 (08:37→18:45)
[2021-04-16] MEDS: Fenofibrate 48 MG TABLET PO SCH (08:38)
[2021-04-16] MEDS: FLUTICASONE/VILANTEROL 1 EACH BLST.W.DEV IH SCH (08:38)
[2021-04-16] MEDS: CHOLECALCIFEROL 1,000 UNIT TABLET (VIT D3) PO SCH (08:38)
[2021-04-16] MEDS: QUETIAPINE FUMARATE 25 MG TABLET PO SCH (08:38)
[2021-04-16] MEDS: METOPROLOL SUCCINATE 50 MG TAB.SR.24H PO SCH (08:39)
[2021-04-16] MEDS: CLOPIDOGREL BISULFATE 75 MG TABLET PO SCH (08:39)
[2021-04-16] MEDS: VALSARTAN 80 MG TABLET PO SCH (08:41)
[2021-04-16] MEDS: SERTRALINE HCL 50 MG TABLET PO SCH (08:41)
[2021-04-16] MEDS: ENOXAPARIN SODIUM 30 MG/0.3 ML DISP.SYRIN SQ SCH (08:42)
[2021-04-16 11:36] LABS: IRON, SERUM 107 ug/dl (50-175); TOTAL IRON BINDING CAPACITY 265 ug/dl (250-450)
[2021-04-16 11:49] LABS: FERRITIN 167 ng/mL (8-388)
[2021-04-16 16:00] VITALS: BP 125/65
--- NOTE | 2021-04-16 19:27 | NUR ---
MS RN OPENING NOTES: RECEIVED PATIENT SLEEP IN BED COMFORTABLY, AROUSABLE TO STIMULI, A/OX3 ON BRP AMBULATORY WITH SUPERVISION, WITH LFA IV LINE WITH NSS@75ML/HR INFUSING WELL, BED IN LOW POSITION CALL LIGHTS WITHIN REACH, WILL CONTINUE TO MONITOR.
--- NOTE | 2021-04-16 19:49 | NUR ---
RN CLOSING NOTE PT AWAKE IN BED. A/O X3 AND CYPRIOT SPEAKING. UNDERSTANDS YI. NO COMPLAINT OF PAIN OR NAUSEA PRESENT. ON RA WITH NO SOB OR RESPIRATORY DISTRESS PRESENT. SELF AMBULATORY WITH STEADY GAIT. IV PRESENT ON L FA 22G AND FLUSHES WELL. ROUTINE MEDS GIVEN. SAFETY MEASURES IN PLACE. SIDE RAILS RAISED. BED LOWERED. CALL LIGHT WITHIN REACH. REPORT GIVEN TO NIGHT NURSE FOR JL
[2021-04-16 20:00] VITALS: BP 108/48
[2021-04-17] MEDS: BLOOD SUGAR DIAGNOSTIC 1 EACH STRIP IN SCH ×4 (06:33→21:42)
--- NOTE | 2021-04-17 06:57 | NUR ---
MS RN CLOSING NOTES PATIENT SLEEP IN BED COMFORTABLY, BED IN LOW POSITION, CALL LIGHTS WITHIN REACH. A/0X3 ABLE TO EXPRESS NEEDS, WITH BRP ON SUPERVISION WITH LFA IV LINE #22 WITH ONGOING IV FLUID OF 0.9NSS 1000CC @75ML/HR INFUSING WELL, PATIENT KEPT CLEAN AND DRY, ALL NEEDS MET, ENDORSE TO INCOMING SHIFT.
--- NOTE | 2021-04-17 07:10 | NUR ---
MS RN OPENING NOTES RECEIVED PATIENT IN BED AWAKE. ALERT AND ORIENTED X 4. PATIENT IS BREATHING EVENLY AND NONLABORED ON ROOM AIR. NO SIGNS OR SYMPTOMS OF DISTRESS NOTED. PATIENT HAS IV ACCESS ON LEFT FOREARM 22# PATENT AND INTACT RUNNING NS @ 75 ML/HR. CALL LIGHT IS WITHIN REACH. SAFETY MEASURES IN PLACE WITH BED LOCKED AT LOWEST POSITION, SIDE RAILS UP X2. WILL CONTINUE TO MONITOR THROUGHOUT SHIFT.
[2021-04-17 08:00] VITALS: BP 115/64
[2021-04-17] MEDS: LEVOTHYROXINE SODIUM 100 MCG TABLET PO SCH (08:25)
[2021-04-17] MEDS: PANTOPRAZOLE 40 MG TABLET.DR PO SCH (08:26)
[2021-04-17] MEDS: CLOPIDOGREL BISULFATE 75 MG TABLET PO SCH (08:26)
[2021-04-17] MEDS: QUETIAPINE FUMARATE 25 MG TABLET PO SCH (08:26)
[2021-04-17] MEDS: CHOLECALCIFEROL 1,000 UNIT TABLET (VIT D3) PO SCH (08:26)
[2021-04-17] MEDS: SERTRALINE HCL 50 MG TABLET PO SCH (08:26)
[2021-04-17] MEDS: LIPASE/PROTEASE/AMYLASE 1 EACH CAPSULE.DR PO SCH ×3 (08:26→17:18)
[2021-04-17] MEDS: METOPROLOL SUCCINATE 50 MG TAB.SR.24H PO SCH (08:27)
[2021-04-17] MEDS: VALSARTAN 80 MG TABLET PO SCH (08:27)
[2021-04-17] MEDS: Fenofibrate 48 MG TABLET PO SCH (08:29)
[2021-04-17] MEDS: FLUTICASONE/VILANTEROL 1 EACH BLST.W.DEV IH SCH (08:29)
[2021-04-17] MEDS: ENOXAPARIN SODIUM 30 MG/0.3 ML DISP.SYRIN SQ SCH (08:36)
--- NOTE | 2021-04-17 10:27 | NUR ---
RN NOTE FAMILY AT BEDSIDE, SON IS STATING HE WOULD LIKE TO TALK TO CASE MANAGEMENT AT BEDSIDE REGARDING DISCHARGE. CASE MANAGEMENT NOTIFIED,
[2021-04-17] MEDS: INSULIN REGULAR, HUMAN 100 UNIT/ML 3 ML VIAL SQ PRN ×3 (11:27→21:43)
[2021-04-17 16:00] VITALS: BP 130/54
--- NOTE | 2021-04-17 18:27 | NUR ---
MS RN OPENING NOTES PATIENT IN BED AWAKE. ALERT AND ORIENTED X 4. PATIENT IS BREATHING EVENLY AND NONLABORED ON ROOM AIR. NO SIGNS OR SYMPTOMS OF DISTRESS NOTED. PATIENT HAS IV ACCESS ON LEFT FOREARM 22# PATENT AND INTACT. ALL MEDICATION GIVEN ORDERED. PATIENT HAS DISCHARGE ORDER BUT FAMILY REFUSING JEWEL BEARING BROACHER AWARE. CALL LIGHT IS WITHIN REACH. SAFETY MEASURES IN PLACE WITH BED LOCKED AT LOWEST POSITION, SIDE RAILS UP X2. WILL ENDORSE TO ONCOMING SHIFT.
--- NOTE | 2021-04-17 19:30 | NUR ---
MS RN OPENING NOTES RECEIVED PATIENT IN BED, AWAKE, A&O X 3. ABLE TO MAKE NEEDS KNOWN, IN NO ACUTE DISTRESS NOTED. ON ROOM AIR TOLERATING WELL, NO SOB, NO ACUTE DISTRESS NOTED. NO COMPLAINTS OF PAIN AT THIS TIME. IV ACCESS ON LEFT FOREARM G#22, PATENT AND FLUSHES WELL. SAFETY PRECAUTIONS OBSERVED: BED ON LOWEST LOCKED POSITION, SIDE RAILS UP X 2, KEPT CALL LIGHT WITHIN EASY REACH. WILL CONTINUE TO MONITOR PATIENT'S STATUS.
[2021-04-17 20:00] VITALS: BP 132/59
[2021-04-18] MEDS: BLOOD SUGAR DIAGNOSTIC 1 EACH STRIP IN SCH ×2 (06:32→13:15)
[2021-04-18] MEDS: INSULIN REGULAR, HUMAN 100 UNIT/ML 3 ML VIAL SQ PRN ×2 (06:33→13:17)
--- NOTE | 2021-04-18 06:39 | NUR ---
MS RN CLOSING NOTES PATIENT IN BED, ASLEEP, EASIY AWAKNE BYVERBAL AND TACTILE STIMULI, IN NO ACUTE DISTRESS NOTED. ON ROOM AIR TOLERATING WELL, NO SOB, NO ACUTE DISTRESS NOTED. NO COMPLAINTS OF PAIN DURING THE SHIFT. IV ACCESS ON LEFT FOREARM G#22, PATENT AND FLUSHES WELL. SAFETY PRECAUTIONS OBSERVED AND MAINTAINED DURING THE SHIFT: BED ON LOWEST LOCKED POSITION, SIDE RAILS UP X 2, KEPT CALL LIGHT WITHIN EASY REACH. WILL ENDORSE TO MORNING SHIFT NURSE FOR JL.
--- NOTE | 2021-04-18 07:40 | NUR ---
MS RN OPENING NOTE RECEIVED PATIENT IN BED. A/O X3. ON ROOM AIR TOLERATING WELL, NO SOB NOTED. IN NO APPARENT DISTRESS. IV ACCESS ON L FA #22 G, INTACT AND PATENT. SAFETY MEASURES MAINTAINED. BED IN LOWEST POSITION, BRAKES LOCKED. SIDE RAILS UP X2. CALL LIGHT WITHIN REACH. WILL CONTINUE PLAN OF CARE.
[2021-04-18 08:00] VITALS: BP 135/60
[2021-04-18] MEDS: PANTOPRAZOLE 40 MG TABLET.DR PO SCH (08:28)
[2021-04-18] MEDS: LIPASE/PROTEASE/AMYLASE 1 EACH CAPSULE.DR PO SCH ×2 (08:28→12:51)
[2021-04-18 08:29] VITALS: BP 135/60
[2021-04-18] MEDS: METOPROLOL SUCCINATE 50 MG TAB.SR.24H PO SCH (08:29)
[2021-04-18] MEDS: SERTRALINE HCL 50 MG TABLET PO SCH (08:29)
[2021-04-18] MEDS: QUETIAPINE FUMARATE 25 MG TABLET PO SCH (08:29)
[2021-04-18] MEDS: LEVOTHYROXINE SODIUM 100 MCG TABLET PO SCH (08:29)
[2021-04-18] MEDS: VALSARTAN 80 MG TABLET PO SCH (08:29)
[2021-04-18] MEDS: CHOLECALCIFEROL 1,000 UNIT TABLET (VIT D3) PO SCH (08:29)
[2021-04-18] MEDS: CLOPIDOGREL BISULFATE 75 MG TABLET PO SCH (08:29)
[2021-04-18] MEDS: FLUTICASONE/VILANTEROL 1 EACH BLST.W.DEV IH SCH (08:30)
[2021-04-18] MEDS: Fenofibrate 48 MG TABLET PO SCH (08:30)
[2021-04-18] MEDS: ENOXAPARIN SODIUM 30 MG/0.3 ML DISP.SYRIN SQ SCH (08:32)
--- NOTE | 2021-04-18 13:53 | NUR ---
RN NOTE GAVE REPORT TO DAVIAN NIX FROM [facility] CONTACT NO [phone]
--- NOTE | 2021-04-18 15:05 | NUR ---
RN NOTE: DISCHARGE PATIENT DISCHARGED. HEALTH TEACHING AND DISCHARGE INSTRUCTIONS GIVEN. PT VERBALIZED UNDERSTANDING. BP 135/60 RI 57 RR 18 T 98 SA02 99%. REMOVED IV ACCESS AND ID WRISTBAND. PT WAS PICKED UP BY 3 EMT'S AND BROUGHT DOWN VIA GURNEY.
== END 2021-04-18 15:05 | DRG 553 ==
LOC: ER 06:33 → MED 08:51
PROVIDERS: ADMIT Nurse Practitioner Acute Care; ATTEND Nurse Practitioner Acute Care
DX: M16.0 Bilateral primary osteoarthritis of hip (principal); N17.0 Acute kidney failure with tubular necrosis; I13.0 Hypertensive heart and chronic kidney disease with heart failure and stage 1 through stage 4 chronic kidney disease, or unspecified chronic kidney disease; D68.59 Other primary thrombophilia; S22.41XK Multiple fractures of ribs, right side, subsequent encounter for fracture with nonunion; I25.10 Atherosclerotic heart disease of native coronary artery without angina pectoris; I50.9 Heart failure, unspecified; N18.9 Chronic kidney disease, unspecified; W01.0XXA Fall on same level from slipping, tripping and stumbling without subsequent striking against object, initial encounter; E11.22 Type 2 diabetes mellitus with diabetic chronic kidney disease; E03.9 Hypothyroidism, unspecified; E66.9 Obesity, unspecified; E78.5 Hyperlipidemia, unspecified; E83.42 Hypomagnesemia; F41.9 Anxiety disorder, unspecified; Z88.0 Allergy status to penicillin; Z20.822 Contact with and (suspected) exposure to COVID-19; J44.9 Chronic obstructive pulmonary disease, unspecified; F32.9 Major depressive disorder, single episode, unspecified; M25.552 Pain in left hip; Z90.5 Acquired absence of kidney; Z86.11 Personal history of tuberculosis; Z79.890 Hormone replacement therapy; Z68.27 Body mass index [BMI] 27.0-27.9, adult; Z91.81 History of falling; Y92.009 Unspecified place in unspecified non-institutional (private) residence as the place of occurrence of the external cause; Z79.84 Long term (current) use of oral hypoglycemic drugs; Z71.3 Dietary counseling and surveillance
CPT/HCPCS: 36415; 70450-TC; 71045-TC; 72192-TC; 73502; 80048-TC; 80061-TC; 82570-TC; 82728-TC; 82962-TC; 83540-TC; 83735-TC; 84100-TC; 84300-TC; 84484-TC; 85025-TC; 85610-TC; 86850-TC; 87081-TC; 93307-TC; 97116-TC; 97530-TC; G0378; J1650; J1815; J3475; J7030

== ENCOUNTER 2021-05-24 16:05 | Emergency (ER) | payer MEDICARE, OTHER ==
[~2021-05-24] VITALS: Ht 167.6 cm; Wt 61.7 kg
[~2021-05-24 16:05] MED LIST changes: -SERT-438 PO; +SERT50TA12 PO
--- NOTE | 2021-05-24 16:23 | NUR ---
TO ER BED 3, C/O RUQ SWELLING AND PAIN WORSE TODAY, SALINE LOCK ESTABLISHED.
[2021-05-24] MEDS: IV NS 0.9% 500 ML BAG IV ONE (16:31)
[2021-05-24 16:47] LABS: BASOPHILS # (AUTO) 0.1 K/uL (0.0-0.2); EOSINOPHILS % (AUTO) 2.5 % (0.0-6.0); HEMATOCRIT 40 % (33-45); HEMOGLOBIN 13.5 g/dL (11.5-14.8); LYMPHOCYTES # (AUTO) 2.1 K/uL (0.8-4.8); LYMPHOCYTES % (AUTO) 25.6 % (20.0-44.0); MEAN CORPUSCULAR HGB CONC 33 g/dl (31.0-36.0); MEAN CORPUSCULAR VOLUME 97 fL (82-100); MONOCYTES # (AUTO) 0.6 K/uL (0.1-1.30); MONOCYTES % (AUTO) 7.1 % (2.0-12.0); NEUTROPHILS # (AUTO) 5.1 K/uL (1.8-8.9); NEUTROPHILS % (AUTO) 63.8 % (43.0-81.0); PLATELET COUNT (AUTO) 237 K/uL (150-450); RED BLOOD CELL COUNT(AUTO) 4.17 MIL/uL (4.0-5.2); WHITE BLOOD COUNT (AUTO) 8.1 K/uL (4.3-11.0)
--- NOTE | 2021-05-24 16:59 | NUR ---
WENT TO CT
[2021-05-24 17:01] LABS: ALANINE AMINOTRANSFERASE 16 U/L (12-78); ALBUMIN 3.5 g/dL (3.4-5.0); ALKALINE PHOSPHATASE 68 U/L (46-116); ASPARTATE AMINOTRANSFERASE 15 U/L (15-37); BILIRUBIN,DIRECT 0.1 mg/dL (0.0-0.2); BILIRUBIN,TOTAL 0.4 mg/dL (0.2-1.0); CALCIUM, SERUM 10.2 mg/dL (8.5-10.1); CARBON DIOXIDE 17 mmol/L (21-32); CHLORIDE 102 mmol/L (98-107); CREATININE 1.8 mg/dL (0.6-1.3); GLUCOSE 74 mg/dL (74-106); LIPASE 653 U/L (73-393); SODIUM SERUM 139 mmol/L (136-145); UREA NITROGEN, BLOOD 42 mg/dL (7-18)
[2021-05-24 17:19] VITALS: BP 120/77
--- NOTE | 2021-05-24 17:30 | NUR ---
URINE COLLECTED AND SENT TO LAB
[2021-05-24 17:43] LABS: BILIRUBIN,URINE LARGE (NEGATIVE); COLOR,URINE YELLOW (YELLOW); LEUKOCYTE ESTERASE ,URINE Negative (NEGATIVE); NITRITE, URINE Negative (NEGATIVE); PROTEIN,URINE Negative (NEGATIVE); UGLUCOSE 500 MG/DL mg/dL (NEGATIVE); UROBILINOGEN,URINE 0.2 EU/dL (0.2)
[2021-05-24 17:54] LABS: RBC,URINE 0-2 /HPF (0-2); WBC,URINE 0-2 /HPF (0-3)
[2021-05-24 17:55] LABS: BACTERIA,URINE Rare /HPF (None Seen); HYALINE CASTS, URINE Rare /LPF (None Seen); SQUAMOUS EPITHELIAL CELL,UR 0-2 /HPF (None Seen)
--- NOTE | 2021-05-24 18:06 | NUR ---
CALLED [facility]. [phone] FOR PT TRANSFER BACK TO SNF ETA [id number]
--- NOTE | 2021-05-24 18:59 | NUR ---
IV removed. Catheter intact and site benign. Pressure and 4x4 applied to site. No bleeding noted.Patient discharged to home in stable condition. Written and verbal after care instructions given. Patient verbalizes understanding of instruction.
== END 2021-05-24 19:13 ==
LOC: ER 16:18
DX: R10.11 Right upper quadrant pain (principal); E78.5 Hyperlipidemia, unspecified; I11.0 Hypertensive heart disease with heart failure; I50.9 Heart failure, unspecified; E11.9 Type 2 diabetes mellitus without complications; E03.9 Hypothyroidism, unspecified; Z98.890 Other specified postprocedural states; Z88.0 Allergy status to penicillin; Z60.2 Problems related to living alone; Z79.899 Other long term (current) drug therapy; Z79.4 Long term (current) use of insulin
CPT/HCPCS: 36415; 71045; 74176; 80048; 80076; 81001; 83690; 84484; 85025; 93005; 99285; J7040 ×2

== ENCOUNTER 2021-06-03 06:24 | Inpatient (IN) | payer MEDICARE, OTHER ==
[~2021-06-03] VITALS: Ht 157.5 cm; Wt 62.6 kg
--- NOTE | 2021-06-03 06:30 | NUR ---
pt lisa from facility c/o head pain s/p unwitnessed fall. Per facility, pt aaox2, baseline. Per facility, pt was trying to use walker and when staff entered pt room, pt was found laying on her back. Unknown ko. pt breathing evenly and unlabored. Pt attached to monitor and pox. Pt skin warm and dry. Pt given blanket and call ligght within reach.
--- NOTE | 2021-06-03 06:30 | NUR ---
Note lindseyone in ED - 06/03/21 at 0648 by STEFANIE pt lisa from facility c/o head pain s/p fall. Per facility, pt aaox2, baseline, unable to answer questions. pt breathing evenly and unlabored. Pt attached to monitor and pox. Pt skin warm and dry. Pt given blanket and call ligght within reach.
[2021-06-03 07:12] LABS: BASOPHILS % (AUTO) 0.5 % (0.0-2.0); EOSINOPHILS % (AUTO) 3.1 % (0.0-6.0); HEMATOCRIT 42 % (33-45); HEMOGLOBIN 14.2 g/dL (11.5-14.8); LYMPHOCYTES % (AUTO) 24.6 % (20.0-44.0); MEAN CORPUSCULAR HGB CONC 34 g/dl (31.0-36.0); MEAN CORPUSCULAR VOLUME 96 fL (82-100); MONOCYTES # (AUTO) 0.8 K/uL (0.1-1.30); MONOCYTES % (AUTO) 10.1 % (2.0-12.0); NEUTROPHILS % (AUTO) 61.7 % (43.0-81.0); PLATELET COUNT (AUTO) 232 K/uL (150-450); RED BLOOD CELL COUNT(AUTO) 4.42 MIL/uL (4.0-5.2); WHITE BLOOD COUNT (AUTO) 8.1 K/uL (4.3-11.0)
--- NOTE | 2021-06-03 07:16 | NUR ---
RECEIVED REPORT FROM DAVIAN IYER FOR JL. PT IS AAOX3 NEW ZEALANDER SPEAKING ONLY, NOT IN RESPIRATORY DISTRESS, V/S STABLE, KEPT RESTED AND COMFORTABLE. WILL CONTINUE TO MONITOR.
[2021-06-03 07:20] LABS: CALCIUM, SERUM 10.7 mg/dL (8.5-10.1); CARBON DIOXIDE 23 mmol/L (21-32); CHLORIDE 103 mmol/L (98-107); CREATININE 1.8 mg/dL (0.6-1.3); GLUCOSE 102 mg/dL (74-106); POTASSIUM 3.1 mmol/L (3.5-5.1); SODIUM SERUM 141 mmol/L (136-145); UREA NITROGEN, BLOOD 37 mg/dL (7-18)
[2021-06-03 07:27] LABS: ALANINE AMINOTRANSFERASE 15 U/L (12-78); ALBUMIN 3.7 g/dL (3.4-5.0); ALKALINE PHOSPHATASE 65 U/L (46-116); ASPARTATE AMINOTRANSFERASE 15 U/L (15-37); BILIRUBIN,DIRECT 0.1 mg/dL (0.0-0.2); BILIRUBIN,TOTAL 0.3 mg/dL (0.2-1.0); TOTAL PROTEIN, SERUM 7.5 g/dL (6.4-8.2)
--- NOTE | 2021-06-03 07:41 | NUR ---
PT IS BACK FROM THE CT SCAN.
[2021-06-03] MEDS ORDERED: IV NS 0.9% 1,000 ML BAG IV ONE (08:00)
[2021-06-03] MEDS ORDERED: POTASSIUM CHLORIDE 10 MEQ TABLET.SA ONE (08:18)
--- NOTE | 2021-06-03 08:24 | NUR ---
MOVE SHEET SUBMITTED AND CALLED FOR TELE BED.
[2021-06-03] MEDS ORDERED: POTASSIUM CHLORIDE 20 MEQ TAB.PRT.SR PO ONE (08:30)
--- NOTE | 2021-06-03 08:34 | NUR ---
SECURITY AT BEDSIDE FOR YEMENI TRANSLATION. PT REFUSED ORAL MEDICATION. AWARE.
[2021-06-03] MEDS ORDERED: FLUT1BLS IH (08:39)
[2021-06-03] MEDS ORDERED: DIVA125C2 PO (08:39)
[2021-06-03] MEDS ORDERED: MAG30ORA PO (08:39)
[2021-06-03] MEDS ORDERED: ACET-868 PO (08:39)
[2021-06-03] MEDS ORDERED: MAGN400O6 PO (08:39)
[2021-06-03] MEDS ORDERED: POTASSIUM CL. PREMIX PERIPHER. 100 ML ONE (09:27)
[2021-06-03] MEDS: POTASSIUM CL. PREMIX PERIPHER. 50 ML IV SCH ×2 (09:36→12:23)
--- NOTE | 2021-06-03 09:45 | NUR ---
REPORT GIVEN TO DAVIAN WILLIS FOR JL. WITH ONGOING POTASSIUM DRIP TRANSFUSING WELL.
[2021-06-03 09:50] VITALS: BP 158/62
--- NOTE | 2021-06-03 09:50 | NUR ---
OB GYN PHYSICIAN ASSISTANT NOTE Received patient via Marley SpoonrPurple Harry awake Taiwanese speaking. Vital signs as follows: BP: 158/62 HR 74 R:20 T: 97.8 O2: 96%. Patient appears sad and crying. Container Filler Melanie provided reassurance. No complains of pain or discomfort. Hooked up to tele box. Has RFA #18 running Kcl 50ml/hr. Patient kept refusing medication earlier. Vital signs within normal limits. Safety measures reinforced. Call light within reach. Will cont to monitor.
[2021-06-03] MEDS: QUETIAPINE FUMARATE 25 MG TABLET PO SCH ×2 (10:32→16:20)
[2021-06-03] MEDS: DIVALPROEX SODIUM 125 MG CAP.SPRINK PO SCH ×2 (10:32→16:20)
[2021-06-03] MEDS: SERTRALINE HCL 50 MG TABLET PO SCH (10:32)
[2021-06-03] MEDS: LEVOTHYROXINE SODIUM 100 MCG TABLET PO SCH (10:32)
[2021-06-03] MEDS: Magnesium 1GM/D5W 100ML PREMIX 100 ML IV SCH ×2 (10:37→13:47)
--- NOTE | 2021-06-03 11:01 | NUR ---
Left message to for adm orders # [phone] waiting for returning call back
[2021-06-03 12:00] VITALS: BP 118/49
[2021-06-03] MEDS: LIPASE/PROTEASE/AMYLASE 1 EACH CAPSULE.DR PO SCH ×2 (12:23→17:31)
[2021-06-03 16:00] VITALS: BP 115/50
[2021-06-03] MEDS: IV NS 0.9% 1,000 ML IV PRN ×2 (17:32→22:26)
[2021-06-03] MEDS ORDERED: [UNRECOGNIZED DRUG - OTHER] PO SCH (18:00)
[2021-06-03] MEDS ORDERED: EMPAGLIFLOZIN PO SCH (18:00)
[2021-06-03] MEDS ORDERED: METFORMIN HCL PO SCH (18:00)
--- NOTE | 2021-06-03 18:40 | NUR ---
RN CLOSING NOTE Patient in bed sitting awake no signs of distress on room air. Patient is Greek speaking but understands a little samoan. Patient keeps removing telebox. Has RFA #18 at 100ml/hr. All due meds given. Vital signs within normal limits. Will endorse to shift commander nurse for gagan.
--- NOTE | 2021-06-03 19:15 | NUR ---
RN OPENING NOTE PATIENT IN BED, AWAKE. MARSHALLESE SPEAKING A/O X 3. PATIENT DOES NOT COMPLAIN OF ANY PAIN AT THIS TIME. NOT IN ANY APPARENT DISTRESS. PATIENT IS ABLE TO MAKE NEEDS KNOWN. PATIENT HAS A RFA 18 G WITH NS RUNNING AT 100 ML/HR. SAFETY MEASURES IN PLACE: BED LOCKED AND IN LOWEST POSITION, CALL LIGHT WITHIN REACH, HEEL CEMENTER RAILS UP, BED ALARM ON. WILL MONITOR PATIENT CLOSELY.
[2021-06-03 20:00] VITALS: BP 153/68
--- NOTE | 2021-06-04 02:58 | NUR ---
RN NOTE PATIENT PULLED ON IV, INSERTED NEW IV LFA 20 G, PATENT AND INTACT.
[2021-06-04 04:00] VITALS: BP 137/57
--- NOTE | 2021-06-04 06:41 | NUR ---
RN CLOSING NOTE PATIENT IN BED, EYES CLOSED. PATIENT NOT IN ANY APPARENT DISTRESS AT THIS TIME. BREATHING EVEN AND UNLABORED, PATIENT TOLERATING ROOM AIR AT 98% O2 SATURATION. NO COMPLAINS OF PAIN AT THIS TIME. PATIENT HAS LFA 20 G, PATENT AND INTACT, RUNNING IV FLUID NS AT 100 ML/HR. SAFETY MEASURES IN PLACE: BED LOCKED AND IN LOWEST POSITION, CALL LIGHT WITHIN REACH, SIDE RAILS UP, BED ALARM ON, ASSISTIVE DEVICE AT BEDSIDE. ISOLATION PRECAUTION IMPLEMENTED D/T PENDING COVID PCR RESULT. ALL NEEDS MET AND ATTENDED, ALL ORDERS CARRIED OUT. WILL ENDORSE TO DAY SHIFT NURSE FOR JL.
[2021-06-04 07:18] LABS: BASOPHILS % (AUTO) 0.3 % (0.0-2.0); EOSINOPHILS % (AUTO) 2.2 % (0.0-6.0); HEMATOCRIT 37 % (33-45); HEMOGLOBIN 12.6 g/dL (11.5-14.8); LYMPHOCYTES # (AUTO) 1.2 K/uL (0.8-4.8); LYMPHOCYTES % (AUTO) 15.5 % (20.0-44.0); MEAN CORPUSCULAR HGB CONC 34 g/dl (31.0-36.0); MEAN CORPUSCULAR VOLUME 96 fL (82-100); MONOCYTES # (AUTO) 0.7 K/uL (0.1-1.30); MONOCYTES % (AUTO) 8.8 % (2.0-12.0); NEUTROPHILS # (AUTO) 5.9 K/uL (1.8-8.9); NEUTROPHILS % (AUTO) 73.2 % (43.0-81.0); PLATELET COUNT (AUTO) 203 K/uL (150-450); RED BLOOD CELL COUNT(AUTO) 3.88 MIL/uL (4.0-5.2)
--- NOTE | 2021-06-04 07:30 | NUR ---
MS RN OPENING NOTE PATIENT IN BED, AWAKE. GERMAN SPEAKING A/O X 3. SATTING 95 % ON ROOM AIR. DENIES SOB, RESPIRATION UNLABORED. PATIENT DOES NOT COMPLAIN OF ANY PAIN AT THIS TIME. PATIENT IS ABLE TO MAKE NEEDS KNOWN. PATIENT HAS A LFA 20 G WITH NS RUNNING AT 100 ML/HR. AMBULATES WITH ASSIST. SAFETY MEASURES IN PLACE: BED LOCKED AND IN LOWEST POSITION, CALL LIGHT WITHIN REACH, SIDE RAILS UP, BED ALARM ON. WILL MONITOR PATIENT CLOSELY.
[2021-06-04 07:45] LABS: ALBUMIN 2.9 g/dL (3.4-5.0); BILIRUBIN,TOTAL 0.3 mg/dL (0.2-1.0); CALCIUM, SERUM 9.2 mg/dL (8.5-10.1); CREATININE 1.2 mg/dL (0.6-1.3); MAGNESIUM 1.9 mg/dL (1.8-2.4); PHOSPHORUS 2.4 mg/dL (2.5-4.9); POTASSIUM 2.9 mmol/L (3.5-5.1)
[2021-06-04 08:00] VITALS: BP 158/64
[2021-06-04] MEDS ORDERED: TRAMADOL HCL 50 MG TABLET PO PRN (08:00)
[2021-06-04] MEDS ORDERED: MAGNESIUM HYDROXIDE 30 ML UDC PO PRN (08:00)
[2021-06-04] MEDS ORDERED: ACETAMINOPHEN 325 MG TABLET PO PRN (08:00)
[2021-06-04] MEDS ORDERED: MAG HYDROX/AL HYDROX/SIMETH 30 ML UDC PO PRN (08:00)
[2021-06-04] MEDS: LEVOTHYROXINE SODIUM 100 MCG TABLET PO SCH (08:10)
[2021-06-04] MEDS: LIPASE/PROTEASE/AMYLASE 1 EACH CAPSULE.DR PO SCH ×3 (08:11→17:21)
[2021-06-04] MEDS ORDERED: Medication Not On Formulary EA (Icosapent Ethyl (Vascepa) 2 GM) PO SCH (09:00)
[2021-06-04] MEDS: Fenofibrate 48 MG TABLET PO SCH (09:19)
[2021-06-04] MEDS: CHOLECALCIFEROL 1,000 UNIT TABLET (VIT D3) PO SCH (09:19)
[2021-06-04] MEDS: DIVALPROEX SODIUM 125 MG CAP.SPRINK PO SCH ×2 (09:19→16:37)
[2021-06-04] MEDS: QUETIAPINE FUMARATE 25 MG TABLET PO SCH ×2 (09:19→16:37)
[2021-06-04] MEDS: SERTRALINE HCL 50 MG TABLET PO SCH (09:21)
[2021-06-04] MEDS: METOPROLOL SUCCINATE 50 MG TAB.SR.24H PO SCH (09:21)
[2021-06-04] MEDS: CLOPIDOGREL BISULFATE 75 MG TABLET PO SCH (09:22)
[2021-06-04] MEDS: LOSARTAN POTASSIUM 50 MG TABLET PO SCH (09:22)
--- NOTE | 2021-06-04 09:30 | NUR ---
RN NOTES DUE MEDS GIVEN
[2021-06-04] MEDS ORDERED: POTASSIUM CHLORIDE 20 MEQ TAB.PRT.SR PO SCH (10:00)
[2021-06-04] MEDS: POTASSIUM CHLORIDE 20 MEQ TAB.PRT.SR PO SCH ×3 (10:37→12:03)
[2021-06-04] MEDS: FLUTICASONE/VILANTEROL 1 EACH BLST.W.DEV IH SCH (10:38)
[2021-06-04] MEDS: NEUTRA PHOS 1 POWD.PACKET PO SCH ×2 (10:38→17:20)
--- NOTE | 2021-06-04 10:45 | NUR ---
RN NOTES SPOKE WITH CALLIE ASHTON, SON - INFORMED HIM IF HIM IF HE COULD BRING HOME MEDICATION VASCEPA. PER HIM, HE WILL BRING IT.
[2021-06-04 16:00] VITALS: BP 103/68
--- NOTE | 2021-06-04 18:39 | NUR ---
MS RN CLOSING NOTE PATIENT IN BED, AWAKE. TRISTANIAN SPEAKING A/O X 3. SATTING 95 % ON ROOM AIR. DENIES SOB, RESPIRATION UNLABORED. PATIENT DOES NOT COMPLAIN OF ANY PAIN AT THIS TIME. PATIENT IS ABLE TO MAKE NEEDS KNOWN. PATIENT HAS A LFA 20 G WITH NS RUNNING AT 100 ML/HR. ON AND OFF, REFUSED TO BE HOOKED AT THIS TIME. AMBULATES WITH ASSIST. SAFETY MEASURES IN PLACE: BED LOCKED AND IN LOWEST POSITION, CALL LIGHT WITHIN REACH, SIDE RAILS UP, BED ALARM ON. PM CARE DONE. ALL NEEDS MET. WILL ENDORSE TO NEXT SHIFT FOR JL.
--- NOTE | 2021-06-04 19:30 | NUR ---
MS RN OPENING NOTE RECEIVED PT AWAKE IN BED. A/O X3, BURMESE-SPEAKING. PT IS ABLE TO MAKE NEEDS KNOWN. PT IS STABLE ON ROOM AIR. NO SOB OR S/S OF RESPIRATORY DISTRESS NOTED. PT DENIES PAIN OR DISCOMFORT AT THIS TIME. IV ACCESS IN LFA #20 INFUSING NS AT 100 ML/HR, INTACT AND PATENT. SAFETY PRECAUTIONS MAINTAINED. BED IN LOWEST LOCKED POSITION, HOB ELEVATED, SIDE RAILS UP X2. CALL LIGHT AND TABLE WITHIN REACH. WILL CONTINUE WITH PLAN OF CARE.
[2021-06-04 21:00] VITALS: BP 93/46
[2021-06-05 05:00] VITALS: BP 110/61
--- NOTE | 2021-06-05 06:10 | NUR ---
MS RN CLOSING NOTE PT IS IN BED WITH EYES CLOSED, AROUSABLE TO STIMULATION. A/O X3, CHINESE-SPEAKING. PT IS ABLE TO MAKE NEEDS KNOWN. PT IS STABLE ON ROOM AIR. NO SOB OR S/S OF RESPIRATORY DISTRESS NOTED. PT DENIES PAIN OR DISCOMFORT AT THIS TIME. IV ACCESS IS INTACT, PATENT, AND FLUSHING WELL. ALL NEEDS HAVE BEEN MET. SAFETY PRECAUTIONS MAINTAINED AT ALL TIMES. BED IN LOWEST LOCKED POSITION, HOB ELEVATED, SIDE RAILS UP X2. CALL LIGHT AND TABLE WITHIN REACH. WILL ENDORSE TO ONCOMING NURSE FOR JL.
--- NOTE | 2021-06-05 07:33 | NUR ---
RN OPENING NOTE RECIEVED PT IS IN BED IN SUPINE POSITION RESTING. PT A/O X3, MAINLY SWEDISH SPEAKING BUT CAN VERBALIZE NEEDS. PT IS STABLE ON ROOM AIR. NO SOB OR S/S OF RESPIRATORY DISTRESS NOTED. PT HAS NO C/O PAIN OR DISCOMFORT AT THIS TIME. IV ACCESS IS INTACT, PATENT,FLUSHING WELL WITH NO SIGNS OF INFILTRATION. PT CONTINUES TO REFUSE IV FLUIDS. EDUCATED RISKS AND BENEFITS, PT STILL DECLINES. SAFETY PRECAUTIONS MAINTAINED AT ALL TIMES. BED IN LOWEST LOCKED POSITION, HOB ELEVATED, SIDE RAILS UP X2. CALL LIGHT WITHIN REACH. WILL CONTINUE TO MONITOR.
[2021-06-05] MEDS: Fenofibrate 48 MG TABLET PO SCH (08:05)
[2021-06-05] MEDS: CLOPIDOGREL BISULFATE 75 MG TABLET PO SCH (08:05)
[2021-06-05] MEDS: LEVOTHYROXINE SODIUM 100 MCG TABLET PO SCH (08:05)
[2021-06-05] MEDS: LIPASE/PROTEASE/AMYLASE 1 EACH CAPSULE.DR PO SCH ×3 (08:05→17:10)
[2021-06-05] MEDS: DIVALPROEX SODIUM 125 MG CAP.SPRINK PO SCH ×2 (08:06→16:04)
[2021-06-05] MEDS: CHOLECALCIFEROL 1,000 UNIT TABLET (VIT D3) PO SCH (08:06)
[2021-06-05] MEDS: SERTRALINE HCL 50 MG TABLET PO SCH (08:06)
[2021-06-05] MEDS: QUETIAPINE FUMARATE 25 MG TABLET PO SCH ×2 (08:06→16:04)
[2021-06-05] MEDS: FLUTICASONE/VILANTEROL 1 EACH BLST.W.DEV IH SCH (08:08)
[2021-06-05] MEDS: LOSARTAN POTASSIUM 50 MG TABLET PO SCH (08:46)
[2021-06-05] MEDS: METOPROLOL SUCCINATE 50 MG TAB.SR.24H PO SCH (08:47)
--- NOTE | 2021-06-05 10:49 | NUR ---
RN NOTES; LABORATORY CAME AND ATTEPTED TO DRAW BLOOD. PT REFUSED.
[2021-06-05 13:00] VITALS: BP 118/57
[2021-06-05 15:26] LABS: BASOPHILS % (AUTO) 0.4 % (0.0-2.0); EOSINOPHILS % (AUTO) 2.1 % (0.0-6.0); HEMATOCRIT 39 % (33-45); HEMOGLOBIN 13.1 g/dL (11.5-14.8); LYMPHOCYTES # (AUTO) 1.9 K/uL (0.8-4.8); LYMPHOCYTES % (AUTO) 22.4 % (20.0-44.0); MEAN CORPUSCULAR HGB CONC 33 g/dl (31.0-36.0); MEAN CORPUSCULAR VOLUME 97 fL (82-100); MONOCYTES # (AUTO) 0.7 K/uL (0.1-1.30); MONOCYTES % (AUTO) 8.7 % (2.0-12.0); NEUTROPHILS # (AUTO) 5.6 K/uL (1.8-8.9); NEUTROPHILS % (AUTO) 66.4 % (43.0-81.0); PLATELET COUNT (AUTO) 188 K/uL (150-450); RED BLOOD CELL COUNT(AUTO) 4.06 MIL/uL (4.0-5.2); WHITE BLOOD COUNT (AUTO) 8.5 K/uL (4.3-11.0)
[2021-06-05 15:46] LABS: ALBUMIN 3.1 g/dL (3.4-5.0); BILIRUBIN,TOTAL 0.3 mg/dL (0.2-1.0); CALCIUM, SERUM 9.5 mg/dL (8.5-10.1); CREATININE 1.3 mg/dL (0.6-1.3); MAGNESIUM 1.6 mg/dL (1.8-2.4); PHOSPHORUS 2.5 mg/dL (2.5-4.9); POTASSIUM 3.8 mmol/L (3.5-5.1); TOTAL PROTEIN, SERUM 6.5 g/dL (6.4-8.2)
[2021-06-05] MEDS: IV NS 0.9% 1,000 ML IV PRN (16:43)
--- NOTE | 2021-06-05 18:11 | NUR ---
RN CLOSING NOTES PT IS IN BED IN SUPINE POSITION RESTING. PT A/O X3, MAINLY BELARUSIAN SPEAKING BUT CAN MAKE NEEDS KNOWN. PT IS ON ROOM AIR AT 98%. NO SOB OR S/S OF RESPIRATORY DISTRESS NOTED. PT HAS NO C/O PAIN OR DISCOMFORT. IV ACCESS IS INTACT, PATENT,FLUSHING WELL WITH NO SIGNS OF INFILTRATION. PT CONTINUES TO REFUSE IV FLUIDS NS @100ML/HR. EDUCATED RISKS AND BENEFITS, PT STILL DECLINES. CONTINUE TO REPLETE K AND PO4. TAKE ORTHOSTATIC BP IN THE MORNING PER MD. WAS ABLE TO GET LABS DRAWN. SAFETY PRECAUTIONS MAINTAINED AT ALL TIMES. BED IN LOWEST LOCKED POSITION, HOB ELEVATED, SIDE RAILS UP X2. CALL LIGHT WITHIN REACH. ENDORSE TO JAZZ MUSICIAN RN IN STABLE CONDITION.
--- NOTE | 2021-06-05 20:05 | NUR ---
[facility]/TN ON INITIAL SHIFT ASSESSMENT, PATIENT WAS IN BED AWAKE, ALERT, COMFORTABLE, NO C/O PAIN, NO DISTRESS NOTED, CALL LIGHT IN REACH, FALL PRECAUTIONS PER PROTOCOL, WILL MONITOR.
[2021-06-05 22:00] VITALS: BP 128/57
--- NOTE | 2021-06-06 00:35 | NUR ---
[facility]/RN PATIENT IS SLEEPING AT THIS TIME, APPEAR COMFORTABLE, NO SIGNS OF DISTRESS NOTED, CALL LIGHT IN REACH, WILL CONTINUE TO MONITOR.
[2021-06-06 05:56] VITALS: BP 110/54
--- NOTE | 2021-06-06 06:02 | NUR ---
[facility]/RN PATIENT IS SLEEPING, APPEAR COMFORTABLE, NO SIGNS OF DISTRESS NOTED CALL LIGHT IN REACH, ALL NEEDS ATTENDED AT THIS TIME, WILL CONTINUE TO MONITOR.
[2021-06-06 07:11] LABS: BASOPHILS % (AUTO) 0.5 % (0.0-2.0); EOSINOPHILS % (AUTO) 2.8 % (0.0-6.0); HEMATOCRIT 35 % (33-45); LYMPHOCYTES # (AUTO) 1.3 K/uL (0.8-4.8); LYMPHOCYTES % (AUTO) 19.5 % (20.0-44.0); MEAN CORPUSCULAR HGB CONC 34 g/dl (31.0-36.0); MEAN CORPUSCULAR VOLUME 96 fL (82-100); MONOCYTES # (AUTO) 0.6 K/uL (0.1-1.30); MONOCYTES % (AUTO) 9.8 % (2.0-12.0); NEUTROPHILS # (AUTO) 4.4 K/uL (1.8-8.9); NEUTROPHILS % (AUTO) 67.4 % (43.0-81.0); PLATELET COUNT (AUTO) 162 K/uL (150-450); RED BLOOD CELL COUNT(AUTO) 3.66 MIL/uL (4.0-5.2); WHITE BLOOD COUNT (AUTO) 6.5 K/uL (4.3-11.0)
[2021-06-06 07:40] LABS: ALANINE AMINOTRANSFERASE 10 U/L (12-78); ALBUMIN 2.8 g/dL (3.4-5.0); ALKALINE PHOSPHATASE 46 U/L (46-116); ASPARTATE AMINOTRANSFERASE 15 U/L (15-37); BILIRUBIN,TOTAL 0.4 mg/dL (0.2-1.0); CALCIUM, SERUM 9.2 mg/dL (8.5-10.1); CARBON DIOXIDE 22 mmol/L (21-32); CHLORIDE 109 mmol/L (98-107); CREATININE 1.1 mg/dL (0.6-1.3); GLUCOSE 86 mg/dL (74-106); SODIUM SERUM 143 mmol/L (136-145); TOTAL PROTEIN, SERUM 5.8 g/dL (6.4-8.2); UREA NITROGEN, BLOOD 17 mg/dL (7-18)
--- NOTE | 2021-06-06 08:08 | NUR ---
orthrostatic vitals sitting 134/59 laying down 140/75 standing 138/67
[2021-06-06] MEDS: CLOPIDOGREL BISULFATE 75 MG TABLET PO SCH (08:31)
[2021-06-06] MEDS: DIVALPROEX SODIUM 125 MG CAP.SPRINK PO SCH ×2 (08:31→16:17)
[2021-06-06] MEDS: SERTRALINE HCL 50 MG TABLET PO SCH (08:32)
[2021-06-06] MEDS: CHOLECALCIFEROL 1,000 UNIT TABLET (VIT D3) PO SCH (08:32)
[2021-06-06] MEDS: LOSARTAN POTASSIUM 50 MG TABLET PO SCH (08:32)
[2021-06-06] MEDS: LIPASE/PROTEASE/AMYLASE 1 EACH CAPSULE.DR PO SCH ×3 (08:32→17:25)
[2021-06-06] MEDS: QUETIAPINE FUMARATE 25 MG TABLET PO SCH ×2 (08:32→16:17)
[2021-06-06] MEDS: Fenofibrate 48 MG TABLET PO SCH (08:33)
[2021-06-06] MEDS: FLUTICASONE/VILANTEROL 1 EACH BLST.W.DEV IH SCH (08:33)
[2021-06-06] MEDS: LEVOTHYROXINE SODIUM 100 MCG TABLET PO SCH (08:33)
[2021-06-06] MEDS: METOPROLOL SUCCINATE 50 MG TAB.SR.24H PO SCH (08:33)
[2021-06-06] MEDS: POTASSIUM CHLORIDE 20 MEQ TAB.PRT.SR PO SCH ×2 (09:57→12:29)
[2021-06-06 13:00] VITALS: BP 129/63
--- NOTE | 2021-06-06 15:50 | NUR ---
MS AEROBICS INSTRUCTOR NOTES RECEIVED TRANSFER FROM [facility]. PATIENT MEDICALLY STABLE AT THIS TIME. A/O X4 ON ROOM AIR. SAFETY PRECAUTIONS IN PLACE; BED IN LOW POSITION AND LOCKED, RAILS UPX2, CALL LIGHT WITHIN REACH. WILL CONTINUE TO MONITOR PATIENT.
[2021-06-06 16:00] VITALS: BP 129/60
[2021-06-06] MEDS: IV NS 0.9% 1,000 ML IV PRN (17:38)
[2021-06-06] MEDS ORDERED: IV NS 0.9% 1,000 ML IV PRN (18:00)
--- NOTE | 2021-06-06 18:48 | NUR ---
MS RN CLOSING NOTES PATIENT IN BED, AWAKE, A/O X3 ON ROOM AIR; BREATHING EVEN AND UNLABORED; NO SOB PRESENT. NO COMPLAINS OF PAIN. LFA IV ACCESS G # 20 PRESENT AND INTACT; RUNNING NS @ 100 MLS/HR. SAFETY PRECAUTIONS IN PLACE; BED IN LOW POSITION AND LOCKED, RAILS UPX2, CALL LIGHT WITHIN REACH. WILL ENDORSE TO TELEVISION CABLE INSTALLER NURSE.
--- NOTE | 2021-06-06 19:44 | NUR ---
RN NOTES PATIENT IN BED, AWAKE, A/O X3 ON ROOM AIR; BREATHING EVEN AND UNLABORED; NO SOB PRESENT. NO COMPLAINS OF PAIN. LFA IV ACCESS G # 20 PRESENT AND INTACT; RUNNING NS @ 100 MLS/HR. SAFETY PRECAUTIONS IN PLACE; BED IN LOW POSITION AND LOCKED, RAILS UPX2, CALL LIGHT WITHIN REACH. WILL CONTINUE TO MONITOR.
[2021-06-06 20:00] VITALS: BP 118/59
--- NOTE | 2021-06-07 07:30 | NUR ---
RN MS NOTES PT IN BED, AWAKE, ALERT, VERBALLY RESPONSIVE, ABLE TO MAKE NEEDS KNOWN, CALL LIGHT WITHIN REACH, IV FLUIDS INFUSING WELL, BED ALARM ON FOR SAFETY.
[2021-06-07 08:00] VITALS: BP 136/52
[2021-06-07] MEDS: CHOLECALCIFEROL 1,000 UNIT TABLET (VIT D3) PO SCH (08:36)
[2021-06-07] MEDS: SERTRALINE HCL 50 MG TABLET PO SCH (08:37)
[2021-06-07] MEDS: QUETIAPINE FUMARATE 25 MG TABLET PO SCH ×2 (08:37→16:40)
[2021-06-07] MEDS: DIVALPROEX SODIUM 125 MG CAP.SPRINK PO SCH ×2 (08:37→16:40)
[2021-06-07] MEDS: LIPASE/PROTEASE/AMYLASE 1 EACH CAPSULE.DR PO SCH ×3 (08:37→17:33)
[2021-06-07] MEDS: LOSARTAN POTASSIUM 50 MG TABLET PO SCH (08:37)
[2021-06-07] MEDS: FLUTICASONE/VILANTEROL 1 EACH BLST.W.DEV IH SCH (08:38)
[2021-06-07] MEDS: LEVOTHYROXINE SODIUM 100 MCG TABLET PO SCH (08:38)
[2021-06-07] MEDS: CLOPIDOGREL BISULFATE 75 MG TABLET PO SCH (08:38)
[2021-06-07] MEDS: METOPROLOL SUCCINATE 50 MG TAB.SR.24H PO SCH (08:38)
[2021-06-07] MEDS: Fenofibrate 48 MG TABLET PO SCH (11:11)
[2021-06-07 16:00] VITALS: BP 133/72
--- NOTE | 2021-06-07 19:20 | NUR ---
RN MS NOTES PT IN BED, AWAKE, ALERT AND ORIENTED, NO COMPLAINT AT THIS TIME, RECEIVED DISCHARGE ORDER FROM DR. DONAHUE, RAPID COVID SWAB OBTAINED, SENT TO LAB, PT'S SON CALLIE AND GRANDDAUGHTER PATSY INFORMED OF PT'S TRANSFER BACK TO [facility], AGREED WITH PLAN, ENDORSED TO GLYCERIN OPERATOR NURSE FOR CONTINUITY OF CARE, ESTIMATED TIME OF BILLING ADJUDICATOR AT 8:30PM.
[2021-06-07 20:00] VITALS: BP 143/74
--- NOTE | 2021-06-07 20:29 | NUR ---
MS/TELE/RN PATIENT IS GO[facility], HOWEVER THE PATIENT'S NEPHEW WAS HERE AND HE DOES NOT WANT THE PATIENT TO GO BACK TO [facility]. SPOKE TO DR. DONAHUE, THE METALLOGRAPHER FOR DR. MORRIS, PER DR. DONAHUE, IT IS OK TO HOLD THE D/C. SMALL PRODUCTS II ASSEMBLER MADE AWARE.
--- NOTE | 2021-06-07 20:38 | NUR ---
MS/TELE/RN PATIENT IS AWAKE, ALERT, COMFORTABLE, NO C/O PAIN, NO DISTRESS NOTED, FALL PRECAUTIONS PER PROTOCOL INSTITUTED, CALL LIGHT IN REACH. WILL MONITOR.
--- NOTE | 2021-06-08 06:22 | NUR ---
MS/TELE/RN PATIENT IS STILL SLEEPING AT THIS TIME, APPEAR COMFORTABLE, NO SIGNS OF DISTRESS NOTED, ALL NEEDS ATTENDED AT THIS TIME, WILL CONTINUE TO MONITOR.
--- NOTE | 2021-06-08 07:28 | NUR ---
RN MS NOTES Patient seen comfortably lying in bed, no apparent distress noted, breathing even and unlabored, denies any pain or discomfort at this time. Call light left within reach.
[2021-06-08 08:00] VITALS: BP 141/64
[2021-06-08] MEDS ORDERED: METOPROLOL SUCCINATE 25 MG TAB.SR.24H PO SCH (09:00)
[2021-06-08] MEDS: CLOPIDOGREL BISULFATE 75 MG TABLET PO SCH (09:07)
[2021-06-08] MEDS: Fenofibrate 48 MG TABLET PO SCH (09:07)
[2021-06-08] MEDS: FLUTICASONE/VILANTEROL 1 EACH BLST.W.DEV IH SCH (09:07)
[2021-06-08] MEDS: SERTRALINE HCL 50 MG TABLET PO SCH (09:08)
[2021-06-08] MEDS: LIPASE/PROTEASE/AMYLASE 1 EACH CAPSULE.DR PO SCH ×3 (09:08→17:31)
[2021-06-08] MEDS: CHOLECALCIFEROL 1,000 UNIT TABLET (VIT D3) PO SCH (09:08)
[2021-06-08] MEDS: LOSARTAN POTASSIUM 50 MG TABLET PO SCH (09:09)
[2021-06-08] MEDS: LEVOTHYROXINE SODIUM 100 MCG TABLET PO SCH (09:09)
[2021-06-08] MEDS: QUETIAPINE FUMARATE 25 MG TABLET PO SCH ×2 (09:09→17:32)
[2021-06-08] MEDS: DIVALPROEX SODIUM 125 MG CAP.SPRINK PO SCH ×2 (09:09→17:31)
[2021-06-08 16:00] VITALS: BP 146/68
--- NOTE | 2021-06-08 18:10 | NUR ---
MS RN CLOSING NOTES Patient in bed, awake, alert, oriented. No respiratory distress noted, on room air, no SOB. No complaints of any pain or discomfort at this time. Abdominal bowel sounds present in all quadrants. Safety precautions in place, bed set in low position, frequent rounds and visual checks rendered. Patient for discharge tonight to [facility], resident aware, belongings and paperworks ready. All needs attended, call light left within reach, will endorse to incoming shift.
--- NOTE | 2021-06-08 19:30 | NUR ---
RN MS NOTES PT IN BED, AWAKE, ALERT, DENIES PAIN, NOT IN DISTRESS, PT BEING DISCHARGED BACK TO [facility], PT IS A BIT UPSET, CALLED PT'S DAUGHTER AND PT SPOKE TO HER AND SHE CALMED DOWN AFTER, PER DAUGHTER, PT IS READY TO GO, BELONGINGS ACCOUNTED FOR, REPORT GIVEN TO LORENZO MARCELO OF [facility], PICKED UP BY 2 AMBULANCE PERSONNEL, LEFT VIA GUERNEY IN STABLE CONDITION.
== END 2021-06-08 19:00 | DRG 312 ==
LOC: ER 06:25 → TELE1 09:28 → MEDSG1 19:10 → MED 06-06 15:43
PROVIDERS: ADMIT Internal Medicine; ATTEND Internal Medicine
DX: I95.1 Orthostatic hypotension (principal); N17.0 Acute kidney failure with tubular necrosis; E83.42 Hypomagnesemia; E83.52 Hypercalcemia; E87.6 Hypokalemia; I11.0 Hypertensive heart disease with heart failure; E11.9 Type 2 diabetes mellitus without complications; E03.9 Hypothyroidism, unspecified; I50.9 Heart failure, unspecified; E78.5 Hyperlipidemia, unspecified; Z79.02 Long term (current) use of antithrombotics/antiplatelets; R29.6 Repeated falls; I25.10 Atherosclerotic heart disease of native coronary artery without angina pectoris; Z90.5 Acquired absence of kidney; Z98.890 Other specified postprocedural states; Z79.51 Long term (current) use of inhaled steroids; Z79.4 Long term (current) use of insulin; Z79.890 Hormone replacement therapy; Z79.899 Other long term (current) drug therapy; N13.9 Obstructive and reflux uropathy, unspecified; E86.0 Dehydration; W05.0XXA Fall from non-moving wheelchair, initial encounter; Y92.129 Unspecified place in nursing home as the place of occurrence of the external cause; S09.90XA Unspecified injury of head, initial encounter
CPT/HCPCS: 36415; 70450-TC; 71045-TC; 72125-TC; 80048-TC; 80053-TC; 80076-TC; 83735-TC; 83880; 84100-TC; 84484-TC; 85025-TC; 87081-TC; G0378; J3475; J3480; J3490; J7030; U0003

== ENCOUNTER 2021-07-20 16:53 | Emergency (ER) | payer MEDICARE, OTHER ==
[~2021-07-20] VITALS: Ht 160 cm; Wt 54.4 kg
[~2021-07-20 16:53] MED LIST changes: +ACET-868 PO; -CARV25TA2 PO; -CLON0.5T4 PO; -DICL100G34 TP; +DIVA125C2 PO; +FLUT1BLS IH; -FLUT1DIS3 INH; +MAG30ORA PO; +MAGN400O6 PO; -METO-357 PO
--- NOTE | 2021-07-20 17:00 | NUR ---
bib PA frm [facility] for eval s/p GLF. unwitnessed found in the floor. Patient a/ox3, breathing even and unlabored, no sob noted. Needs attended. Kept comfortable.
--- NOTE | 2021-07-20 18:52 | NUR ---
CALLED [facility]. PT WILL BE PICKED UP AT 1999.
--- NOTE | 2021-07-20 20:08 | NUR ---
REPORT GIVEN TO LORENZO MARCELO FOR JL FROM [facility]
--- NOTE | 2021-07-20 20:09 | NUR ---
[facility] AT BED SIDE TO [facility]ARD BLEACHER THE PT
--- NOTE | 2021-07-20 20:18 | NUR ---
PT TRANSFERED BACK TO FACILITY.
[2021-07-20 20:29] VITALS: BP 111/75
== END 2021-07-20 20:29 ==
LOC: ER 17:05
DX: S09.8XXA Other specified injuries of head, initial encounter (principal); R51.9 Headache, unspecified; E78.5 Hyperlipidemia, unspecified; E11.9 Type 2 diabetes mellitus without complications; I11.0 Hypertensive heart disease with heart failure; I50.9 Heart failure, unspecified; E03.9 Hypothyroidism, unspecified; Z98.890 Other specified postprocedural states; Z90.5 Acquired absence of kidney; Z88.0 Allergy status to penicillin; Z60.2 Problems related to living alone; Z79.899 Other long term (current) drug therapy; Z79.4 Long term (current) use of insulin; W01.0XXA Fall on same level from slipping, tripping and stumbling without subsequent striking against object, initial encounter; Y93.89 Activity, other specified; Y92.89 Other specified places as the place of occurrence of the external cause; Y99.8 Other external cause status
CPT/HCPCS: 70450-TC; 72125-TC